=== PATIENT | female | born 1970 | race Caucasian/White ===

== ENCOUNTER → 2017-11-27 07:18 | Outpatient (CLI) | payer OTHER, SELFPAY ==
--- NOTE | 2017-11-27 07:00 | BI_ITS ---
MAMMOGRAPHY - BILATERAL SCREENING REASON FOR EXAM: Female, 47 years old. Routine annual screening examination. PERTINENT HISTORY: Non-contributory. TECHNIQUE: Digital bilateral breast marley (3D mammographic acquisition) in the CC and MLO projections. 2-D mediolateral oblique (MLO) and craniocaudad (CC) views of both breasts were obtained. CAD: Full Field Digital Mammography with Computer Added Detection was performed. COMPARISON: Comparison is made with prior outside examination dated November 24, 2016. FINDINGS: Breast Composition: The breasts are heterogeneously dense, which may obscure small masses. There are no dominant masses or suspicious calcifications. Stable small benign appearing bilateral axillary lymph nodes. No other significant abnormalities are identified. There has been no significant change since the prior study. BI/SCREENING MAMM (CAD), BILAT IMPRESSION: Stable bilateral screening mammogram. Yearly follow-up mammogram recommended. (A) ASSESSMENT CATEGORY: BIRADS Category 2: Benign. A letter regarding these results will be sent to the patient by the facility within 30 days. Approximately 10% of breast cancers are not detected by mammography. A normal mammogram should not delay biopsy of a clinically suspicious abnormality. [id number] Electronically Signed: Ramon Catherine MD at 14:39 EDT Tel [phone], Service support ,
== END ==
PROVIDERS: Family Provider Family Medicine; PCP Family Medicine; Visit Provider Nurse Practitioner Women's Health
DX: Z12.31 Encounter for screening mammogram for malignant neoplasm of breast (principal)
CPT/HCPCS: 77063; 77067

== ENCOUNTER → 2018-10-20 12:17 | Outpatient (CLI) | payer OTHER, SELFPAY ==
[2017-11-25 08:41] VITALS: BMI 34.9
--- NOTE | 2018-10-20 12:22 | RAD_ITS ---
STUDY: X-RAY - RIGHT KNEE REASON FOR EXAM: Female, 48 years old. Injury TECHNIQUE: 4 view(s) of the knee. COMPARISON: None. FINDINGS: Normal visualized distal femur. Normal visualized proximal tibia and fibula. Normal proximal tibiofibular articulation. There is mild joint space narrowing with mild degenerative change of the medial knee compartment. Normal lateral femorotibial compartment. Normal patellofemoral articulation. The soft tissue structures are unremarkable. RAD/Knee 4 or More Views IMPRESSION: Mild degenerative changes with joint space narrowing of the medial knee compartment. There is no evidence of fracture, dislocation, free intra-articular calcifications, or suprapatellar effusion. Electronically Signed: Carlos Panchal MD at 17:38 EDT , Service support ,
== END ==
PROVIDERS: Family Provider Family Medicine; PCP Family Medicine; Referring Provider Family Medicine; Visit Provider Family Medicine
DX: S83.91XA Sprain of unspecified site of right knee, initial encounter (principal)
CPT/HCPCS: 73564

== ENCOUNTER 2018-11-02 15:00 | Outpatient (RCR) | payer OTHER, SELFPAY ==
--- NOTE | 2018-11-02 15:46 | HP.PTEVAL ---
Patient's Visit Information DOMINIQUE CONCEPCION is a 48 year old F referred to Physical Therapy by Burak Ortiz MD with a diagnosis of Right Knee Pain/Strain. Date of Evaluation: 11/02/18 Physical Therapist: Felecia Carroll DPT - Visit Plan Frequency: 1x/Week Duration: 4 Weeks Plan: Return to MD for further evaluation - Subjective Findings: Started with right ankle pain in August- went and saw PCP who diagnosed her with a sprain with an x-ray and put her in a boot for 2 weeks- still had pain. Works at [employer] sent her to Dr. duke who reports that she had torn tendons. Follows up with him soon. Unsure if its from all of this or from sleeping and twisted to far- about 2 weeks ago. Then she saw Dr. Ortiz who sent her to therapy. Sleep: unable to sleep on her side. No injections in her knee- IC Diclofenac Sod EC. Meds help but just not better. Pain is located along medial joint- No pain radiating and they feel very I from each other. Worst: 7/10 Agg:laying on her side, being up and busy, walking alot Eases: laying on the couch with it propped up Best: 2/10. Reports the pain feels sharp to start and now is more dully achy pains. 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 No N/T in the LE. Feels a lot of popping and clicking and feels like its going to give out or go backwards. PMHx: skin cancer Meds: BC - Objective Posture: good throughout session. Gait: no deviation noted with walking a good pace. Stairs: asc/desc 8 recip with no HR. HR/TR: able. SLS: 30 sec without LOB but reports feeling like its going to hyperextend. Palpation: tender along medial joint line. ROM: 0-125 degrees with pain at end ranges. Strength: 5/5 throughout LE- increased pain with testing knee and hip strength. Special Test: Gind Test: positive, Jennifer: positive - Rehabilitation Potential Physical Therapy Diagnosis: Patient presents with hypomobility- she has increased pain with palpation, strength testing and functional mobility - Anticipated Interventions Thank you for the opportunity to evaluate your patient. For Medicare and Medicare HMO plans, please review the plan of care and approve it. It will need to be FAXED BACK to us at [phone] for Medicare purposes. For Medicare only, by signing this I certify the plan of care. Please let me know if there are questions or concerns regarding this plan of care. Physician Signature: Date:
--- NOTE | 2019-02-14 14:30 | HP.PT.NRP ---
HP - Discharge Summary (1) - Patient Information DOMINIQUE CONCEPCION was seen in my office for initial evaluation on 11/02/18. The following Plan of Care was established for this patient: Initial Frequency: 1x/Week Initial Duration: 4 Weeks This patient was last seen in our office . Pertinent comments regarding their Physical therapy will appear below: Patient has not attended PT in over 6 weeks and is appropriate for d/c and to return to MD for further evaluation as needed. At this point I will be discontinuing this patient from physical therapy. I would be happy to see this patient again in the future if found appropriate by the physician. Thank you! MARIE EngleT
== END 2018-11-03 19:00 | disposition home or self-care (01) ==
LOC: PT 15:00
PROVIDERS: Family Provider Family Medicine; PCP Family Medicine; Referring Provider Family Medicine; Visit Provider Family Medicine
DX: S83.91XD Sprain of unspecified site of right knee, subsequent encounter (principal); M25.561 Pain in right knee
CPT/HCPCS: 97161

== ENCOUNTER → 2018-11-29 07:19 | Outpatient (CLI) | payer OTHER, SELFPAY ==
--- NOTE | 2018-11-29 07:25 | MRI_ITS ---
STUDY: MRI RIGHT KNEE REASON FOR EXAM: Female, 48 years old. Medial knee pain. TECHNIQUE: Standardized fat and water weighted pulse sequences were obtained in all 3 orthogonal planes. COMPARISON: X-rays dated October 20, 2018. FINDINGS: Grade 3 cartilage loss at the patellar apex with mild reactive bone marrow edema (axial image 8 series 2). Lateral compartment articular cartilage preserved. Medial compartment grade 3/4 cartilage loss. No acute fracture, dislocation or osseous destruction. Lateral meniscus intact. Medial meniscus degeneration with early degenerative tear at the meniscal bodies/undersurface (sagittal image 20 series 4 and coronal image 14 series 6). Trace joint effusion. Small popliteal cyst. No significant soft tissue swelling. Normal medial collateral ligamentous complex (MCL). Normal distal semimembranosus, gracilis and semitendinosus tendons. Normal proximal tibiofibular articulation. Normal lateral collateral (fibular) ligament. Normal popliteus tendon. Normal biceps femoris tendon. Normal anterior cruciate ligament (ACL). Normal posterior cruciate ligament (PCL). Normal medial and lateral patellar retinaculum. Normal quadriceps tendon. Normal patellar tendon. Normal Hoffa's fat pad. MRI/Lower Ext Joint Only (Routine) IMPRESSION: Medial meniscal degeneration with early degenerative tear Patellar apex moderate cartilage loss Medial compartment moderate/severe cartilage loss Trace joint effusion and small popliteal cyst Electronically Signed: Dallas Westbrook DO at 9:14 EDT Tel , Service support ,
== END ==
PROVIDERS: Family Provider Family Medicine; PCP Family Medicine; Referring Provider Orthopaedic Surgery; Visit Provider Orthopaedic Surgery
DX: M13.161 Monoarthritis, not elsewhere classified, right knee (principal)
CPT/HCPCS: 73721

== ENCOUNTER → 2018-12-28 07:02 | Outpatient (CLI) | payer OTHER, SELFPAY ==
--- NOTE | 2018-12-28 07:04 | BI_ITS ---
MAMMOGRAPHY - BILATERAL SCREENING REASON FOR EXAM: Female, 48 years old. Routine annual screening examination. PERTINENT HISTORY: Non-contributory. TECHNIQUE: Digital bilateral breast chelita (3D mammographic acquisition) in the CC and MLO projections. 2-D mediolateral oblique (MLO) and craniocaudad (CC) views of both breasts were obtained. CAD: Full Field Digital Mammography with Computer Added Detection was performed. COMPARISON: Comparison is made with prior study dated November 27, 2017. FINDINGS: Breast Composition: The breasts are heterogeneously dense, which may obscure small masses. There are no dominant masses or suspicious calcifications. Stable small bilateral axillary lymph nodes. No other significant abnormalities are identified. There has been no significant change since the prior study. BI/SCREEN MAMM (CAD) W/[place]IL[place] BILAT IMPRESSION: Stable bilateral screening mammogram. Yearly follow-up mammogram recommended. (A) ASSESSMENT CATEGORY: BIRADS Category 1: Negative. A letter regarding these results will be sent to the patient by the facility within 30 days. Approximately 10% of breast cancers are not detected by mammography. A normal mammogram should not delay biopsy of a clinically suspicious abnormality. [id number] Electronically Signed: Ramon Catherine, at 8:46 EDT , Service support ,
== END ==
PROVIDERS: Family Provider Family Medicine; PCP Family Medicine; Referring Provider Nurse Practitioner Women's Health; Visit Provider Nurse Practitioner Women's Health
DX: Z12.31 Encounter for screening mammogram for malignant neoplasm of breast (principal)
CPT/HCPCS: 77063; 77067

== ENCOUNTER 2019-01-17 08:24 | Day surgery (SDC) | payer OTHER, SELFPAY ==
[2018-12-16 08:13] VITALS: BMI 34.9
--- NOTE | 2018-12-16 10:31 | HP_ITS ---
Intake Vital Signs 12/16/18 Body Mass Index (BMI) 34.9 Intake Visit Reasons: Rt knee Chief Complaint: right knee pain Is patient in pain?: Yes Allergies No Known Allergies Allergy (Verified 11/25/17 08:42) [facility] Medical History (Updated 01/07/18 @ 14:20 by Ella Banks) Abnormal Pap smear of cervix (Acute) History of melanoma (Acute) [place] teeth extracted (Resolved) Surgical History (Updated 01/07/18 @ 14:20 by Ella Banks) S/P cholecystectomy (Acute) H/O foot surgery (Resolved) basal cell removed (Resolved) excision of malignancy melanoma (Resolved) Social History (Updated 12/16/18 @ 10:31 by Mehul Lord DO) Smoking Status: Never smoker alcohol intake: current details: social substance use type: does not use caffeine: No what type of physical activity do you participate in: walking frequency: 3-4 times per week seatbelt use: always do you feel safe at home: Yes 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 DOMINIQUE CONCEPCION is a 48 year old F here today for right knee MRI f/u, she continues to have anterior medial knee pain with clicking. Denies any instability or locking. There is no swelling noted today. Denies numbness, tingling or other associated symptoms. Her pain is the worst at night. Ortho Exam Right Knee Skin/Wound: No erythema, No ecchymosis, No swelling Knee ROM: Yes ROM-Extension -20 to 0, No ROM-Flexion 0-140 (110) Examination: Yes Med jt line tenderness, No Lat jt line tenderness Stability: NML: Anterior Drawer, NML: Posterior Drawer Patella Grind: Yes KNEE: no joint effusion no patellar instability positive thesillies. Supplemental Info 11/29/2018 MRI right knee: Degenerative medial meniscal tear moderate to severe cartilage loss medial compartment moderate patellofemoral cartilage wear Assessment & Plan Problems 1. Primary osteoarthritis of right knee M17.11 2. Derangement of medial meniscus of right knee M23.303 Plan Reviewed the MRI and explained that she has degenerative meniscus tears and cartilage loss greatest in the medial compartment and patellofemoral. Her treatment options are continued steroid injections, gel injection, medial reconciliation coordinator brace, otc glucosamine chondroitin and/or nsaids or knee arthroscopy for debridement and further eval of the depth of OA and her need for a uni vs tka but explained that there is possibility of continued pain secondary to OA. We will prescribe a refill of diclofenac for her travel, if she wants the arthroscopy when she returns and prior to the fall wedding she has. Reviewed the pre-operative plans with the patient. Risks and benefits of the procedure were fully explained, including but not limited to infection, neurovascular injury, continued pain, arthritis, stiffness, need for further surgery, re-injury, DVT, PE, general risks of anesthesia, and loss of limb or life. The patient understands all the risks and does wish to proceed with written consent. Follow up two weeks post op or sooner if pain, swelling, numbness or associated symptoms, or concerns develop. All questions answered. Patient in agreement of plan. Medications New: diclofenac sodium 75 mg PO BID 60 tabs 0RF Coding Level of Care Code Off vis,est,level 3 Diagnoses Primary osteoarthritis of right knee M17.11 ??Osteoarthritis type: primary Derangement of medial meniscus of right knee M23.303 ??Laterality: right 12/16/18 1031 <Electronically signed by Mehul zheng DO> Date _ Mehul Lord DO
[2019-01-17 08:47] VITALS: BP 122/55; PULSE 79; RESP 16; TEMP 37.3; O2SAT 98; BMI 35.1
[2019-01-17 08:58] LABS: Internal QC Validated? YES +Cl - CLEAR BKGD; Pregnancy, Urine Negative Negative
[2019-01-17] MEDS: Cefazolin 2 GM in 0.9% Normal Saline 100 ML IV (10:24)
[2019-01-17] MEDS: Epinephrine (1 mg/ml) 1 MG/ML VIAL (10:50)
[2019-01-17] MEDS: Morphine 4 MG/ML Syringe (11:00)
[2019-01-17] MEDS: Bupivacaine 0.5% PF 10 ML VIAL (11:00)
[2019-01-17] MEDS: MethylPREDNISolone Acetate 80 MG/ML Vial (11:00)
[2019-01-17] MEDS: Bupiv/Epi 0.5% Mpf 30 ML Vial (11:00)
[2019-01-17 11:16] VITALS: BP 122/55; BP 139/58; PULSE 102; RESP 18; TEMP 36.9; O2SAT 97
--- NOTE | 2019-01-17 11:25 | PCM.HP.BLA ---
History and Physical Date of Admission: 01/17/19 History and Physical 12/16/18 1031 MR#: [id number] Acct: [id number] Name: DOMINIQUE CONCEPCION Rep #: [id number] : 1970 48 From: Mehul Lord DO PCP: Burak Ortiz MD Status: PRE [facility] [place] [facility] Location: [facility] [place] Intake Vital Signs 12/16/18 Body Mass Index (BMI) 34.9 Intake Visit Reasons: Rt knee Chief Complaint: right knee pain Is patient in pain?: Yes Allergies No Known Allergies Allergy (Verified 11/25/17 08:42) [facility] Medical History (Updated 01/07/18 @ 14:20 by Ella Banks) Abnormal Pap smear of cervix (Acute) History of melanoma (Acute) [place] teeth extracted (Resolved) Surgical History (Updated 01/07/18 @ 14:20 by Ella Banks) S/P cholecystectomy (Acute) H/O foot surgery (Resolved) basal cell removed (Resolved) excision of malignancy melanoma (Resolved) Social History (Updated 12/16/18 @ 10:31 by Mehul Lord DO) Smoking Status: Never smoker alcohol intake: current details: social substance use type: does not use caffeine: No what type of physical activity do you participate in: walking frequency: 3-4 times per week seatbelt use: always do you feel safe at home: Yes additional social history: [employer]- 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 DOMINIQUE CONCEPCION is a 48 year old F here today for right knee MRI f/u, she continues to have anterior medial knee pain with clicking. Denies any instability or locking. There is no swelling noted today. Denies numbness, tingling or other associated symptoms. Her pain is the worst at night. Ortho Exam Right Knee Skin/Wound: No erythema, No ecchymosis, No swelling Knee ROM: Yes ROM-Extension -20 to 0, No ROM-Flexion 0-140 (110) Examination: Yes Med jt line tenderness, No Lat jt line tenderness Stability: NML: Anterior Drawer, NML: Posterior Drawer Patella Grind: Yes KNEE: no joint effusion no patellar instability positive thesillies. Supplemental Info 11/29/2018 MRI right knee: Degenerative medial meniscal tear moderate to severe cartilage loss medial compartment moderate patellofemoral cartilage wear Assessment & Plan Problems 1. Primary osteoarthritis of right knee M17.11 2. Derangement of medial meniscus of right knee M23.303 Plan Reviewed the MRI and explained that she has degenerative meniscus tears and cartilage loss greatest in the medial compartment and patellofemoral. Her treatment options are continued steroid injections, gel injection, medial craft superintendent brace, otc glucosamine chondroitin and/or nsaids or knee arthroscopy for debridement and further eval of the depth of OA and her need for a uni vs tka but explained that there is possibility of continued pain secondary to OA. We will prescribe a refill of diclofenac for her travel, if she wants the arthroscopy when she returns and prior to the fall wedding she has. Reviewed the pre-operative plans with the patient. Risks and benefits of the procedure were fully explained, including but not limited to infection, neurovascular injury, continued pain, arthritis, stiffness, need for further surgery, re-injury, DVT, PE, general risks of anesthesia, and loss of limb or life. The patient understands all the risks and does wish to proceed with written consent. Follow up two weeks post op or sooner if pain, swelling, numbness or associated symptoms, or concerns develop. All questions answered. Patient in agreement of plan. Medications New: diclofenac sodium 75 mg PO BID 60 tabs 0RF Coding Level of Care Code Off vis,est,level 3 Diagnoses Primary osteoarthritis of right knee M17.11 ??Osteoarthritis type: primary Derangement of medial meniscus of right knee M23.303 ??Laterality: right 12/16/18 1031 <Electronically signed by Mehul Lord DO> Date Mehul Lord DO 12/23/18 0620 <Electronically signed by Mehul Lord DO> Date: Time: Mehul Lord DO CC: Burak Ortiz MD; Mehul Lord DO ~ Date Dictated: 12/16/18 1031 Date Transcribed: 12/19/18 0908 Engine Wiper: Signed I have re-examined the patient. There are no clinical changes since date of exam
--- NOTE | 2019-01-17 11:29 | DCINST_ITS ---
Discharge Diet: No Restrictions Call your doctor if you observe: Fever of 101 or Higher Additional Instructions: Ice and elevate next 72 hours .keep dressing on clean and dry for 48 hours then may remove begin showering daily but do not submerge in tub or pool. After shower may apply Band-Aids . Encourage knee range of motion weightbearing as tolerated, use crutches until confident in knee then may discontinue. No strenuous activity. When not ambulating keep iced and elevated next 72 hours.Ice and elevate next 72 hours .keep dressing on clean and dry for 48 hours then may remove begin showering daily but do not submerge in tub or pool. After shower may apply Band-Aids . Encourage knee range of motion weightbearing as tolerated, use crutches until confident in knee then may discontinue. No strenuous activity. When not ambulating keep iced and elevated next 72 hours. May take Ultram 1-2 every 8hrs [id number] every 6 hs and and [id number] Aleve 500mg every 12 hrs for pain as directed Allergies/Adverse Reactions: Allergies acetaminophen [From Vicodin] Adverse Reaction (Verified 01/17/19 08:37) Nausea/Vom/Diarrhea hydrocodone [From Vicodin] Adverse Reaction (Verified 01/17/19 08:37) Nausea/Vom/Diarrhea Medications to take at Discharge diclofenac sodium 75 mg tablet,delayed release 75 mg PO BID #60 tab 12/16/18 Desogestrel-Ethinyl Estradiol [Apri 28 Day Tablet] 1 ea PO DAILY 01/03/19 Acetaminophen [Tylenol Extra Strength] 1,000 mg PO Q6H PRN PRN #100 tab 01/17/19 traMADol [Ultram (G)] 50 mg PO Q4H PRN PRN 7 Days #42 tablet 01/17/19 The following prescriptions were given: Acetaminophen [Tylenol Extra Strength] 1,000 mg PO Q6H PRN PRN #100 tab PRN Reason: Pain Transmission Status: Pending to [facility]/pharmacy #[id number] traMADol [Ultram (G)] 50 mg PO Q4H PRN PRN 7 Days #42 tablet PRN Reason: Pain Transmission Status: Received by [facility]/pharmacy #[id number] Primary Care Physician: Burak Ortiz MD [Primary Care Provider] - Test Results: Test results from this visit will be discussed in further detail at your follow- up appointment, if applicable. Please Follow Up With: Mehul Lord DO - 2 weeks
[2019-01-17 11:30] VITALS: BP 122/55; BP 142/66; PULSE 97; RESP 18; O2SAT 100
--- NOTE | 2019-01-17 11:32 | OP.PCM_ITS ---
Report of Operation Date of Procedure: 01/17/19 Description of Surgical Findings:: Preop diagnosis: Right knee medial meniscus tear DJD Postoperative diagnosis: Complex tear posterior horn medial meniscus grade 3 Estephania wear medial femoral condyle medial tibial plateau medial and lateral patellar facet and grade 3 fissuring lateral tibial plateau Procedure: Right knee arthroscopic partial medial meniscectomy chondroplasty patella-and medial femoral condyle Anesthesia: General Estimated blood loss: 5 mL Tourniquet time: 22 minutes 300 mmHg Complications: none Indication for procedure: This is a 49-year-old female patient with ongoing mechanical knee pain who did have MRI evidence of medial meniscus tear and DJD the patient did wish to proceed with an elective arthroscopic surgery to attempt to alleviate the symptoms. Risk benefits and alternatives of the procedure were reviewed including risk of bleeding infection nerve artery tissue damage need for further surgery continued pain and expected postoperative course. Procedure: The patient was met in the preoperative holding area. The operative extremity was identified by both patient and physician and family and marked. Patient was brought back to the operating room on a wheeled cart and transferred to the operating table in the supine position. Anesthesia was started. A well- padded tourniquet was placed on the operative extremity. A lower extremity leg vaughn was secured to the operative extremity. The contralateral extremity was well-padded and the end of the bed was flexed to 90 degrees. The patient was prepped and draped in the usual sterile fashion. A timeout was called to ensure the proper patient, procedure, and extremity were being contemplated. 0.5% Marcaine with epinephrine was injected into the planned incisional areas under the skin only. An Esmarch was used to exsanguinate the extremity and the tourniquet was inflated. An 11 blade scalpel was used to make a stab incision in the anterior lateral portal. The arthroscope was inserted into the intercondylar notch and inflow and outflow tubes were attached. Arthroscopic visualization began. The medial compartment was entered. An 18-gauge spinal needle was used to establish the placement for anterior medial portal. An 11 blade scalpel was used to make a stab incision. Blunt probe was inserted followed by a meniscal probe. There was hypertrophic synovitis which was debrided with a shaver to allow for visualization as well as immediately noticing complex tearing of the posterior horn medial meniscus as well as grade 3 cartilage wear of the medial femoral condyle medial tibial plateau there was a loose cartilage flaps of the medial femoral condyle and a chondroplasty was performed. With the use of arthroscopic biting instruments and shaver and ArthroCare wand partial medial meniscectomy was performed. the ACL was found to be intact. The lateral compartment was entered and 3 fissuring of the lateral tibial plateau however there is no loose cartilage flaps The arthroscope was switched to the medial portal to complete the procedure. The medial and lateral gutters were inspected and were free of loose bodies. The patellofemoral joint was inspected grade 3 cartilage wear of the medial and lateral patellar facets which were debrided of loose cartilage flaps. The knee was thoroughly irrigated and drained. An intra-articular injection with 5 cc 0.5% Marcaine plain 4 mg of morphine and 40 mg of Depo-Medrol was injected intra-articularly. The arthroscope was removed the portals were closed with 3-0 nylon arthroscopic stitches. Followed by Xeroform 4 x 4's ABDs web roll and an Bret wrap. The tourniquet was let down and the drapes were removed. All counts were correct. The patient was brought back to the PACU in stable condition.
[2019-01-17 11:45] VITALS: BP 122/55; BP 135/70; PULSE 88; RESP 18; O2SAT 98
[2019-01-17 11:50] VITALS: BP 122/55; BP 131/67; PULSE 85; RESP 18; TEMP 36.6; O2SAT 98
[2019-01-17] MEDS: traMADol 50 MG Tablet PO (13:00)
[2019-01-17 13:47] VITALS: BP 118/65; BP 122/55; PULSE 82; RESP 16; TEMP 37.5; O2SAT 93
== END 2019-01-17 13:53 | disposition home or self-care (01) ==
LOC: SDC 08:28 → AC 08:28
PROVIDERS: Anesthesiology; Family Provider Family Medicine; PCP Family Medicine; Referring Provider Orthopaedic Surgery; Visit Provider Orthopaedic Surgery
PROC: (CPT 29870; principal; 2019-01-17 09:45)
DX: M23.221 Derangement of posterior horn of medial meniscus due to old tear or injury, right knee (principal); M17.11 Unilateral primary osteoarthritis, right knee
CPT/HCPCS: 29881; 64447; 81025; J7120; J2405

== ENCOUNTER 2019-06-01 08:00 | Outpatient (RCR) | payer OTHER, SELFPAY ==
--- NOTE | 2019-02-03 14:11 | HP.PTEVAL ---
Patient's Visit Information DOMINIQUE CONCEPCION is a 49 year old F referred to Physical Therapy by Mehul Lord DO with a diagnosis of R medial menisectomy.. Date of Evaluation: 01/31/19 Physical Therapist: Chris Head DPT - Visit Plan Frequency: 2x /Week Duration: 4-6 Weeks Plan: Start with ROM exercises, progress extension, add in biking. Progress stability exericses. Add in functional exercoses once no longer having pain. - Subjective Findings: Pt. is here today for her initial evaluation with diagnosis of R medial menisectomy. DOS: 01/17/19. Pt. reprots I am doing better, but it is still sore.' Pt. reports no N/T. Pt. has no radiating pain, 2/10 pain. Pt. reports pding some ankle pumps at home, but not much else for exercise. Pt. reports no fever or chills. 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 Pt. is able to sleep with minimal issues. Pt. is hopeful to get back to all recreational walking and biking without limitations. - Pain R medial knee Pain Intensity (Out of 10): 2 Pain Intensity Range: 1, 4 - Objective POSTURE: Pt. has sligth wt. shift to L side in stance. Lack TKE in stance. PALPATION: Pt. has mild knee effusion, expected. Pt. has well healing incsions, no signs of infection. Negative homans sign. NEURO: normal throughout bilateral LEs. ROM: L knee 0-0-137deg. R knee 0-6-88deg. Pain at end ranges of motions. Tight in B HS. MMT: Pt. is able to achieve a good quad set, has sligth extensor lag with SLR, but minimal. HIp abd 4/5, hip ext 4/5. GAIT: Pt. ambulates with out AD, but has decreased step length, and lacks TKE on RLE during stance phase, also has limited knee flexion during swing phase. - Goals Goal 1:: Pt. to be I with HEP. Goal Time Frame: 4-6 Weeks Goal 2:: Pt. to have full ROM of R knee without incerase in symptoms. Goal Time Frame: 4-6 Weeks Goal 3:: Pt. to have increased RLE strength by 1/2 grade through without increase in symptoms. Goal Time Frame: 4-6 Weeks Goal 4:: Pt. ambulate with normal pattern without increase in symptoms. Goal Time Frame: 4-6 Weeks Goal 5:: Pt. to negotiate steps with reciprocal pattern with use of 1 HR. Goal Time Frame: 4-6 Weeks Goal 6:: Pt. to sleep throughout the night without increase in symptoms. Goal Time Frame: 4-6 Weeks - Rehabilitation Potential Physical Therapy Diagnosis: Pt. has signs and symptoms consistent post surgical R menisectomy. Pt. has subsequent hypombiility, weakness and difficulty with gait. Rehabilitation Potential: Excellent - Anticipated Interventions Patient/Client Instruction: Educate patient on: Condition, Plan of Care, Risk Factors, Benefits of Fitness Program For the Purpose of:: To improve decision making, To facilitate caregiver knowledge, To improve self management, To prevent re-injury, To improve ability to perform tasks related to life management Therapeutic Exercise to Include: Strength training, Power training, Endurance training, Balance training, Body mechanics, Postural training, Flexibilty training, Gait and locomotor training, Passive ROM, Active ROM, Dynamic Lumbar Stabilization For the Purpose of:: To decrease pain, To increase ROM, To improve nutrient delivery to tissue, To increase oxygenation perfusion, To improve muscle performance and motor function, To improve ability to perform ADL's, To improve health of tissue, To decrease soft tissue restriction, To increase flexibility/ROM, To improve endurance IF ES: Yes Cryotherapy (ice pack, ice massage): Yes For the Purpose of:: To decrease pain, To decrease swelling/inflammation, To increase ROM, To improve nutrient delivery to tissue Thank you for the opportunity to evaluate your patient. For Medicare and Medicare HMO plans, please review the plan of care and approve it. It will need to be FAXED BACK to us at [phone] for Medicare purposes. For Medicare only, by signing this I certify the plan of care. Please let me know if there are questions or concerns regarding this plan of care. Physician Signature: Date:
== END 2019-06-01 19:00 | disposition home or self-care (01) ==
LOC: PT 08:00
PROVIDERS: Family Provider Family Medicine; PCP Family Medicine; Visit Provider Orthopaedic Surgery
DX: Z98.890 Other specified postprocedural states (principal)
CPT/HCPCS: 97014; 97016; 97035; 97110; 97161; 97530; G0283

== ENCOUNTER → 2020-01-01 08:07 | Outpatient (CLI) | payer OTHER, SELFPAY ==
[2019-11-28 10:39] VITALS: BMI 35.1
--- NOTE | 2020-01-01 08:15 | BI_ITS ---
MAMMOGRAPHY - BILATERAL SCREENING 3-D TOMOSYNTHESIS REASON FOR EXAM: Female, 49 years old. Routine screening PERTINENT HISTORY: Previous hormone use. TECHNIQUE: 2-D mammograms and 3-D Tomosynthesis of the breast (s) were performed. CAD was performed. COMPARISON: 12/28/2018 FINDINGS: The breast composition is heterogeneously dense that can obscure small breast masses. Scattered benign calcifications are seen. No dense spiculated masses or suspicious microcalcifications are identified. No architectural distortion is identified. There is no skin thickening or retraction. There has been no significant change since the prior study. BI/SCREEN MAMM (CAD) W/CHELITA BILAT IMPRESSION: No mammographic signs of malignancy. Routine yearly mammograms recommended. ASSESSMENT CATEGORY: BIRADS Category 2: Benign. A letter regarding these results will be sent to the patient by the facility within 30 days. FOLLOW UP RECOMMENDATION: Yearly follow up mammogram recommended. (A) Approximately 10% of breast cancers are not detected by mammography. A normal mammogram should not delay biopsy of a clinically suspicious abnormality. Electronically Signed: Deric Bragg MD at 9:13 EDT , Service support ,
== END ==
PROVIDERS: PCP Family Medicine; Referring Provider Nurse Practitioner Women's Health; Visit Provider Nurse Practitioner Women's Health
DX: Z12.31 Encounter for screening mammogram for malignant neoplasm of breast (principal)
CPT/HCPCS: 77063; 77067

== ENCOUNTER → 2020-12-03 13:33 | Outpatient (CLI) | payer OTHER, SELFPAY ==
[2020-12-03 08:40] VITALS: BMI 35.1
[2020-12-08 10:21] LABS: HPV APTIMA, High Risk Negative (Negative)
== END ==
PROVIDERS: PCP Family Medicine; Referring Provider Nurse Practitioner Women's Health; Visit Provider Nurse Practitioner Women's Health
DX: Z12.4 Encounter for screening for malignant neoplasm of cervix (principal)
CPT/HCPCS: 87624; 88175; G0145

== ENCOUNTER → 2021-01-01 07:47 | Outpatient (CLI) | payer OTHER, SELFPAY ==
[2020-12-03 08:40] VITALS: BMI 35.1
--- NOTE | 2021-01-01 07:49 | BI_ITS ---
MAMMOGRAPHY - BILATERAL SCREENING REASON FOR EXAM: Female, 50 years old. Routine annual screening examination. PERTINENT HISTORY: Non-contributory. TECHNIQUE: Digital bilateral breast chelita (3D mammographic acquisition) in the CC and MLO projections. 2-D mediolateral oblique (MLO) and craniocaudad (CC) views of both breasts were obtained. CAD: Full Field Digital Mammography with Computer Added Detection was performed. COMPARISON: Comparison is made with prior study dated 01/01/2020 and 12/28/2018 FINDINGS: Breast Composition: The breasts are heterogeneously dense, which may obscure small masses. There are no dominant masses or suspicious calcifications. Stable small benign appearing bilateral axillary lymph nodes. No other significant abnormalities are identified. There has been no significant change since the prior study. BI/SCRN MAMM (CAD)W/CHELITA BILAT IMPRESSION: Stable bilateral screening mammogram. Yearly follow-up mammogram recommended. (A) ASSESSMENT CATEGORY: BIRADS Category 2: Benign. A letter regarding these results will be sent to the patient by the facility within 30 days. Approximately 10% of breast cancers are not detected by mammography. A normal mammogram should not delay biopsy of a clinically suspicious abnormality. [id number] Electronically Signed: Ramon Catherine MD at 9:10 EDT , Service support ,
== END ==
PROVIDERS: PCP Family Medicine; Referring Provider Nurse Practitioner Women's Health; Visit Provider Nurse Practitioner Women's Health
DX: Z12.31 Encounter for screening mammogram for malignant neoplasm of breast (principal)
CPT/HCPCS: 77063; 77067

== ENCOUNTER → 2022-01-02 | Outpatient (CLI) | payer BC, SELFPAY ==
--- NOTE | 2022-01-02 08:06 | BI_ITS ---
MAMMOGRAPHY - BILATERAL SCREENING REASON FOR EXAM: Female, 51 years old. Routine annual screening examination. PERTINENT HISTORY: Non-contributory. TECHNIQUE: Digital bilateral breast chelita (3D mammographic acquisition) in the CC and MLO projections. 2-D mediolateral oblique (MLO) and craniocaudad (CC) views of both breasts were obtained. CAD: Full Field Digital Mammography with Computer Added Detection was performed. COMPARISON: Comparison is made with prior study 01/01/2021 and 01/01/2020. FINDINGS: Breast Composition: The breasts are heterogeneously dense, which may obscure small masses. There are no dominant masses or suspicious calcifications. No other significant abnormalities are identified. There has been no significant change since the prior study. BI/SCRN MAMM (CAD)W/CHELITA BILAT IMPRESSION: Stable bilateral screening mammogram. Yearly follow-up mammogram recommended. (A) ASSESSMENT CATEGORY: BIRADS Category 1: Negative. A letter regarding these results will be sent to the patient by the facility within 30 days. Approximately 10% of breast cancers are not detected by mammography. A normal mammogram should not delay biopsy of a clinically suspicious abnormality. [id number] Electronically Signed: Ramon Catherine MD at 9:43 EDT ,
== END | disposition home or self-care (01) ==
LOC: OPBI 08:05
PROVIDERS: PCP Family Medicine; Referring Provider Nurse Practitioner Women's Health; Visit Provider Nurse Practitioner Women's Health
DX: Z12.31 Encounter for screening mammogram for malignant neoplasm of breast (principal)
CPT/HCPCS: 77063; 77067

== ENCOUNTER → 2022-09-07 | Outpatient (CLI) | payer BC, SELFPAY ==
[2022-09-07 10:14] LABS: Hematocrit 42.3 % (37-47); Hemoglobin 13.7 g/dL (12.0-15.0); Mean Corp Hgb Conc 32.4 g/dL (32-36); Mean Corpuscular Hgb 29.8 pg (27.0-32.0); Mean Platelet Vol. 9.8 fl (6.2-12.0); Platelet Count 265 K/mm3 (150-450); RBC Distribution Width CV 12.8 % (11.6-14.6); RBC Distribution Width SD 43.1 fl (35.1-43.9); White Blood Count 5.8 K/mm3 (4.4-11.0)
[2022-09-07 10:33] LABS: AST(SGOT) 27 U/L (15-37); Alanine Aminotransfer ALT/SGPT 44 U/L (13-56); Albumin, Serum 3.5 g/dL (3.2-5.0); Alkaline Phosphatase 73 U/L (45-117); Anion Gap 3 (5-15); BUN 22 mg/dL (7-18); BUN/Creat Ratio 32.8 RATIO (10-20); Calcium,Total 9.2 mg/dL (8.5-10.1); Chloride 105 mmol/L (98-107); Cholesterol 195 mg/dL (200); Creatinine, Serum 0.67 mg/dL (0.55-1.02); EST Glomerular Filtration Rate 98 mL/min (>60); Est Glom Filt Rate - Afr Amer 118 mL/min (>60); Globulin 3.5 g/dL (2.2-4.2); Glucose 96 mg/dL (74-106); High Density Lipoprotein 63 mg/dL; Potassium 4.1 mmol/L (3.5-5.1); Sodium Level 137 mmol/L (136-145); Triglycerides 105 mg/dL; Very Low Density Lipoprotein 21 mg/dL (5-40)
== END | disposition home or self-care (01) ==
LOC: MFPLAB 08:44
PROVIDERS: PCP Family Medicine; Visit Provider Nurse Practitioner Family
DX: R60.9 Edema, unspecified (principal); Z13.220 Encounter for screening for lipoid disorders
CPT/HCPCS: 36415; 80053; 80061; 85027

== ENCOUNTER → 2022-11-13 | Outpatient (CLI) | payer BC, SELFPAY ==
--- NOTE | 2022-11-13 06:58 | EKG12_ITS ---
Test Reason : PREOP Blood Pressure : / mmHG Vent. Rate : 077 BPM Atrial Rate : 077 BPM P-R Int : 162 ms QRS Dur : 098 ms QT Int : 356 ms P-R-T Axes : 065 018 042 degrees QTc Int : 402 ms Normal sinus rhythm Low voltage QRS Borderline ECG Confirmed by JG CROSS, SOCORRO ([id number]), image editor NANCY LONDON ([id number]) on 11/17/2022 8:41:03 AM Referred By: Kathryn Ace Confirmed By:SOCORRO GREGORIO MD
[2022-11-13 08:05] LABS: Absolute Lymphocyte Count 3.67 X10^3/uL (0.83-4.51); Absolute Neutrophil Count 2.6 X10^3/uL (2.0-7.7); Basophil# 0.07 X10^3/uL; Eosinophil# 0.23 X10^3/uL; Eosinophils% 3.3 % (0-5); Hematocrit 43.5 % (37-47); Lymphocyte # 3.67 X10^3/ul (0.83-4.51); Lymphocyte % 51.9 % (19-41); Mean Corp Hgb Conc 32.2 g/dL (32-36); Mean Corpuscular Hgb 29.3 pg (27.0-32.0); Mean Platelet Vol. 10.1 fl (6.2-12.0); Monocyte# 0.48 X10^3/uL; Monocyte% 6.8 % (0-10); NRBC Flagged by Analyzer 0 % (0-5); Neutrophil # 2.61 X10^3/uL (2.7-7.7); Neutrophil % 36.9 % (47-70); Platelet Count 255 K/mm3 (150-450); RBC Distribution Width CV 12.5 % (11.6-14.6); RBC Distribution Width SD 41.5 fl (35.1-43.9); Red Blood Count 4.78 M/mm3 (4.2-5.4); White Blood Count 7.1 K/mm3 (4.4-11.0)
[2022-11-13 08:26] LABS: Anion Gap 4 (5-15); BUN 17 mg/dL (7-18); BUN/Creat Ratio 20.5 RATIO (10-20); Chloride 105 mmol/L (98-107); Creatinine, Serum 0.83 mg/dL (0.55-1.02); EST Glomerular Filtration Rate 76 mL/min (>60); Est Glom Filt Rate - Afr Amer 92 mL/min (>60); Glucose 95 mg/dL (74-106); Potassium 4.3 mmol/L (3.5-5.1); Sodium Level 140 mmol/L (136-145)
== END | disposition home or self-care (01) ==
PROVIDERS: PCP Family Medicine; Referring Provider Physician Assistant Surgical; Visit Provider Physician Assistant Surgical
DX: Z01.818 Encounter for other preprocedural examination (principal); Z01.810 Encounter for preprocedural cardiovascular examination
CPT/HCPCS: 36415; 80048; 85025; 93005

== ENCOUNTER → 2022-12-29 | Outpatient (CLI) | payer BC, SELFPAY ==
[2022-12-29 09:45] LABS: Vitamin D,25 Hydroxy 41.8 ng/mL
[2022-12-29 09:51] LABS: T4 Free Direct 0.98 ng/dL (0.76-1.46); Thyroid Stim Hormone (TSH) 1.56 uIU/mL (0.358-3.74)
[2022-12-30 05:07] LABS: Thyroid Peroxidase AB < 9 IU/mL (0-34)
== END | disposition home or self-care (01) ==
PROVIDERS: PCP Family Medicine; Referring Provider Nurse Practitioner Women's Health; Visit Provider Nurse Practitioner Women's Health
DX: R53.83 Other fatigue (principal); Z13.21 Encounter for screening for nutritional disorder
CPT/HCPCS: 36415; 82306; 84439; 84443; 86376

== ENCOUNTER → 2023-01-05 | Outpatient (CLI) | payer BC, SELFPAY ==
--- NOTE | 2023-01-05 08:02 | BI_ITS ---
MAMMOGRAPHY - BILATERAL SCREENING REASON FOR EXAM: Female, 52 years old. Routine annual screening examination. PERTINENT HISTORY: Non-contributory. TECHNIQUE: Digital bilateral breast chelita (3D mammographic acquisition) in the CC and MLO projections. 2-D mediolateral oblique (MLO) and craniocaudad (CC) views of both breasts were obtained. CAD: Full Field Digital Mammography with Computer Added Detection was performed. COMPARISON: Comparison is made with prior study dated January 02, 2022 and January 01, 2021. FINDINGS: Breast Composition: The breasts are heterogeneously dense, which may obscure small masses. There are no dominant masses or suspicious calcifications. Stable small benign-appearing bilateral axillary lymph nodes. No other significant abnormalities are identified. There has been no significant change since the prior study. BI/SCRN MAMM (CAD)W/CHELITA BILAT IMPRESSION: Stable bilateral screening mammogram. Yearly follow-up mammogram recommended. (A) ASSESSMENT CATEGORY: BIRADS Category 2: Benign. A letter regarding these results will be sent to the patient by the facility within 30 days. Approximately 10% of breast cancers are not detected by mammography. A normal mammogram should not delay biopsy of a clinically suspicious abnormality. [id number] Electronically Signed: Ramon Catherine MD at 9:20 EDT ,
== END | disposition home or self-care (01) ==
LOC: OPBI 08:01
PROVIDERS: PCP Family Medicine; Referring Provider Nurse Practitioner Women's Health; Visit Provider Nurse Practitioner Women's Health
DX: Z12.31 Encounter for screening mammogram for malignant neoplasm of breast (principal)
CPT/HCPCS: 77063; 77067

== ENCOUNTER 2023-07-15 17:30 | Outpatient (RCR) | payer BC, SELFPAY ==
--- NOTE | 2023-05-27 18:01 | HP.PTEVAL ---
Patient's Visit Information Visit Information Visit Information: DOMINIQUE CONCEPCION is a 53 year old F referred to Physical Therapy by Out of Town Doctor with a diagnosis of UNILATERAL POST-TRUAMATIC OSTEOARTHRITIS ,LEFT KNEE. Date of Evaluation: 05/27/23 Physical Therapist: Shon Smith, PT, Cert MDT, OCS Visit Plan Frequency: 2x /Week Duration: 4 Weeks Plan: PT INTERVENTIONS ROM,FLEXABILITY ,STRENGTHENING QUADS /HAMS/HIP AND FUNCTIONAL STRENGTHENING Subjective Subjective: This 53 y/o female presents to physical therapy with left knee pain with OA. Patient has left knee pain ~ year ,with patient underwent s/p medial and lateral meniscectomy due to degenerative . Most recently , seen Dr Abebe Oct not candidate for partial but in future TKA . Patient has had 2 cortisone injection 1 week ago ,which helped. Patient had x-rays at [facility]. Patient had h/o [address] wanted to try Aquatics. Prescribed meloxicam. Described sharp ache. Patient had some edema. Aggravating factors squatting/kneeling ,stairs ascending ,.Alleviating factors movement. Patient affects sleeping. Patient condition affects QOL and function . Patient goals arron decrease pain. 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 Pain Left Knee: Pain Intensity (Out of 10): 4 Pain Intensity Range: 10 Objective Objective: POSTURE: mild forward posture at trunk hips/knees flexed NEURO: denies paresthesia/tingling PALAPTION: medial lateral tender EDEMA: joint line 45.7 cm AROM: supine knee flexion 0-125 degrees MMT: ( peak force) left quads 26.2 ,hamstrings 25.1 ,hip flexion 27.1 FLEXABLITY: hamstrings mod tight STAIRS: ascend/descend 5 steps with rails alternating Special Tests L Knee Jennifer - Meniscus: Positive L Knee Valgus - MCL: Positive L Knee Varus - LCL: Positive Comments: PAIN Balance/Special Test Scores Lower Extremity Functional Score: 40 Goals Goal 1:: Patient to be I with Aquatic Therapy program for knee OA Goal Time Frame: 4-6 Weeks Goal 2:: Patient to improve AROM supine knee flexion by 5 degrees to improve stairs Goal Time Frame: 4-6 Weeks Goal 3:: Patient to improve peak force quads/hams 5 # strength to improve function Goal Time Frame: 4-6 Weeks Goal 4:: Patient to improve LFES score by 5 points to improve function and QOL Goal Time Frame: 4-6 Weeks Rehabilitation Potential Physical Therapy Diagnosis: Patient has DJD left knee with pain, weakness , and difficulty with squatting and stairs thus will benefit from skilled PT Rehabilitation Potential: Good Anticipated Interventions Patient/Client Instruction: Educate patient on: Condition and Plan of Care For the Purpose of:: To decrease pain, To increase ROM, To improve muscle performance and motor function, To improve ability to perform ADL's, To increase tolerance to activity/condition/position, To improve ability of physical actions for home/community/work/leisure, To improve gait and locomotor functions, To improve health of tissue and To improve endurance Therapeutic Exercise to Include: Strength training, Power training, Endurance training, Balance training, Flexibilty training, In an aquatic setting , Passive ROM and Active ROM Comment: QUADS/HAMS/HIP For the Purpose of:: To decrease pain, To increase ROM, To improve nutrient delivery to tissue, To increase oxygenation perfusion, To improve muscle performance and motor function, To increase tolerance to activity/condition/position, To improve ability of physical actions for home/community/work/leisure, To improve health of tissue, To decrease soft tissue restriction and To increase flexibility/ROM Text: Thank you for the opportunity to evaluate your patient. For Medicare and Medicare HMO plans, please review the plan of care and approve it. It will need to be FAXED BACK to us at [phone] for Medicare purposes. For Medicare only, by signing this I certify the plan of care. Please let me know if there are questions or concerns regarding this plan of care. Physician Signature: Date:
--- NOTE | 2023-07-15 18:19 | HP.PTDCSUM ---
Discharge Summary D/C summary: It has been my pleasure to treat DOMINIQUE CONCEPCION referred by Cas Everett PA-C, with the diagnosis of UNILATERAL POST-TRUAMATIC OSTEOARTHRITIS ,LEFT KNEE for a total of 14 visit(s). Discharge Date: 07/15/23 Please see the following information for a summary of their discharge status. Subjective Subjective: Sore from last session Less edema pain is better Mind full on side step Stairs are better Pain Left Knee: Pain Intensity (Out of 10): 2 Overall Improvement % Improvement: 70 Objective Objective/Function: POSTURE: mild forward posture at trunk hips/knees flexed NEURO: denies paresthesia/tingling PALAPTION: medial lateral tender EDEMA: joint line 42. cm AROM: supine knee flexion 0-140 degrees MMT: ( peak force) left quads 62.2 ,hamstrings 57.8. 1hip flexion 53.3 FLEXABLITY: hamstrings min/mod tight STAIRS: ascend/descend 5 steps Goals Goal 1:: Patient to be I with Aquatic Therapy program for knee OA Goal Progress: Goal Met Goal 2:: Patient to improve AROM supine knee flexion by 5 degrees to improve stairs Goal Progress: Goal Met Goal 3:: Patient to improve peak force quads/hams 5 # strength to improve function Goal Progress: Goal Met Goal 4:: Patient to improve LFES score by 5 points to improve function and QOL Goal Progress: Goal Met Plan Plan: D/C TO AQUATICS ON OWN D/C Information Discharge Comments: HEP d/c sentence: If there are questions or concerns regarding this patient's physical therapy, please feel free to call me at [phone]. Thank you for the referral of this patient. Sincerely, Shon Smith, PT, Cert MDT, OCS Balance/Gait/Functional tests Balance/Special Test Scores Lower Extremity Functional Score: 55 Improvement % Improvement: 70
== END 2023-07-15 19:00 | disposition home or self-care (01) ==
LOC: PT 17:30
PROVIDERS: PCP Family Medicine; Visit Provider Physician Assistant Surgical
DX: M17.32 Unilateral post-traumatic osteoarthritis, left knee (principal); E66.8 Other obesity; Z68.32 Body mass index [BMI] 32.0-32.9, adult
CPT/HCPCS: 97113; 97161; 97530

== ENCOUNTER → 2024-01-10 | Outpatient (CLI) | payer BC, SELFPAY ==
--- NOTE | 2024-01-10 07:59 | BI_ITS ---
MAMMOGRAPHY - BILATERAL SCREENING REASON FOR EXAM: Female, 54 years old. Routine annual screening examination. PERTINENT HISTORY: Non-contributory. TECHNIQUE: Digital bilateral breast chelita (3D mammographic acquisition) in the CC and MLO projections. 2-D mediolateral oblique (MLO) and craniocaudad (CC) views of both breasts were obtained. CAD: Full Field Digital Mammography with Computer Added Detection was performed. COMPARISON: Comparison is made with prior study dated January 05, 2023 and January 02, 2022. FINDINGS: Breast Composition: The breasts are heterogeneously dense, which may obscure small masses. There are no dominant masses or suspicious calcifications. Stable small benign-appearing bilateral axillary lymph nodes. No other significant abnormalities are identified. There has been no significant change since the prior study. BI/SCRN MAMM (CAD)W/CHELITA BILAT IMPRESSION: Stable bilateral screening mammogram. Yearly follow-up mammogram recommended. (A) ASSESSMENT CATEGORY: BIRADS Category 2: Benign. A letter regarding these results will be sent to the patient by the facility within 30 days. Approximately 10% of breast cancers are not detected by mammography. A normal mammogram should not delay biopsy of a clinically suspicious abnormality. [id number] Electronically Signed: Ramon Catherine MD at 8:49 EDT ,
== END | disposition home or self-care (01) ==
LOC: OPBI 07:59
PROVIDERS: PCP Family Medicine; Referring Provider Nurse Practitioner Women's Health; Visit Provider Nurse Practitioner Women's Health
DX: Z12.31 Encounter for screening mammogram for malignant neoplasm of breast (principal)
CPT/HCPCS: 77063; 77067

== ENCOUNTER 2024-02-25 08:23 | Day surgery (SDC) | payer BC, SELFPAY ==
[2024-02-25] VITALS (7 sets, daily range): BP systolic 93–127; BP diastolic 53–75; PULSE 71–83; RESP 16; TEMP 36.3–36.6; O2SAT 99–100; BMI 29.5
--- NOTE | 2024-02-25 08:56 | PCM.PRE.AN2 ---
ASA Classification* ASA Classification ASA Classification: 2 Assessment & Plan Anesthesia* Anesthesia Assessment Anesthesia Assessment: Discussed sedation and/or anesthesia options, risks, benefits, and alternatives with patient/parents/legal guardian/POA. Questions invited. The patient/parents/legal guardian/POA seems to understand and agrees to proceed with anesthesia plan. Reviewed the physical assessment, medical history, allergy history and patient home medications list prior to surgery/procedure/anesthetic and documented any changes. Performed airway and anesthesia risk assessments. Anesthesia Type Anesthesia Type: MAC Anesthesia Focused Assessment* Airway Assessment Mouth opens: >3 cm Mallampati Score: II Focused Labs Anesthesia Preop lab: CBC WBC 7.1 K/mm3 (4.4-11.0) 11/13/22 07:01 RBC 4.78 M/mm3 (4.2-5.4) 11/13/22 07:01 Hgb 14.0 g/dL (12.0-15.0) 11/13/22 07:01 Hct 43.5 % (37-47) 11/13/22 07:01 Plt Count 255 K/mm3 (150-450) 11/13/22 07:01 CHEMISTRY Potassium 4.3 mmol/L (3.5-5.1) 11/13/22 07:01 Sodium 140 mmol/L (136-145) 11/13/22 07:01 BUN 17 mg/dL (7-18) 11/13/22 07:01 Creatinine 0.83 mg/dL (0.55-1.02) 11/13/22 07:01 Glucose 95 mg/dL (74-106) 11/13/22 07:01 TSH 1.56 uIU/mL (0.358-3.74) 12/29/22 09:05 COAG Urine Test Negative Negative 01/17/19 08:45 Pre-Assessment Diagnosis/Proposed Procedure Planned Operative Procedure(s): CSCOPE Anesthesia History 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 When Was Last Pacemaker Check QUESTION #4 FULL TEXT: You/Your Family Experience fever (hyperthermia) with Anesthesia Last Oral Intake Last Oral intake: Last Oral Intake NPO since Meds taken in AM with sips of water? Meds patient instructed to take am of surgery PONV PONV - marketing and communications officer: PONV - marketing and communications officer Female Yes 02/23/24 13:02 HX of Motion Sickness Yes 02/23/24 13:02 HX of N/V After Surgery No 02/23/24 13:02 Non-Smoker Yes 02/23/24 13:02 Duration of Surgery greater No 02/23/24 13:02 than 60 minutes Number of Risk Factors 3 02/23/24 13:02 PONV Score Moderate Risk 02/23/24 13:02 Height & Weight Height & Weight: Anesthesia: Height & Weight Height 5 ft 8 in 01/05/24 10:33 Respiratory Assessment Respiratory Assessment - marketing and communications officer: Respiratory Tract Infection Hx - marketing and communications officer Hx Respiratory Tract Infection No 02/23/24 13:02 STOP Sleep Apnea STOP Sleep Apnea - marketing and communications officer: STOP Sleep Apnea - marketing and communications officer Hx Hypertension No 02/23/24 13:02 Hx Sleep Apnea No 02/23/24 13:02 CPAP BIPAP Do you snore loudly (louder No 02/23/24 13:02 than talking or can be heard Do you often feel tired/ No 02/23/24 13:02 fatigued/ sleepy during daytime? Has anyone observed you stop No 02/23/24 13:02 breathing during sleep? STOP Results Negative 02/23/24 13:02 QUESTION #5 FULL TEXT : Do you snore loudly (louder than talking or can be heard through closed doors)? 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 Specify any problems Hx of Preganancy in last 3 N/A 02/23/24 13:02 Months Nurse Filling Out Transfusion NBUCHER 02/23/24 13:02 & Questions: Date: 02/23/24 02/23/24 13:02 Time: 13:04 02/23/24 13:02 Patient unable to answer at this time (ie. confused, unrespo /Reproduction History /Reproductive History - marketing and communications officer: /Reproductive Hx- marketing and communications officer Hx Now No 02/23/24 13:02 Gestational Age (in weeks): EDC: Hx Hx Para Hx Section SAB No 02/23/24 13:02 Active Medications Active Medications: Current Medications Generic Name Dose Route Start Last Admin Trade Name Freq PRN Reason Stop Dose Admin Lactated Ringer's 1,000 mls @ 15 mls/hr 02/25/24 08:45 IV .Q48H CARL PFSH Medical History Wears glasses Cancer Osteoarthritis Gastric reflux Heartburn Non-smoker Abnormal Pap smear of cervix History of melanoma Home Medications ?Medication ?Instructions ?Recorded ?Last Taken ?Type multivitamin 1 tab PO DAILY 12/04/21 Unknown History calcium carbonate (Calcium 600) 600 mg PO DAILY 12/29/22 Unknown History meloxicam 15 mg tablet 15 mg PO DAILY 12/29/22 Unknown History estradiol 0.05 mg-norethindrone 1 patch transdermal 2XW #24 ea 01/04/24 Unknown Rx 0.14 mg/24 hr semiwkly transderm patch (CombiPatch) semaglutide (weight loss) 1.7 1.7 mg subcut TU 01/04/24 02/15/24 History mg/0.75 mL subcutaneous pen injector (Wegovy) amoxicillin 500 mg capsule 500 mg PO TID PRN SURGERY POST 02/23/24 02/25/24 History KNEE REPLACEMENT Allergy/AdvReac Type Severity Reaction Status Date / Time hydrocodone (From Vicodin) AdvReac Nausea/Vom/ Verified 02/25/24 08:45 Diarrhea Surgical History History of meniscectomy of left knee H/O meniscectomy of right knee S/P cholecystectomy History of partial knee replacement basal cell removed excision of malignancy melanoma H/O foot surgery [place] teeth extracted Social History household members: spouse current occupational status: employed Smoking Status: Never smoker alcohol intake: current details: social substance use type: does not use caffeine: No what type of physical activity do you participate in: walking frequency: 3-4 times per week seatbelt use: always do you feel safe at home: Yes additional social history: Mainor- 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 Patient works at [employer] Review of Systems (Anesthesia) ROS Narrative System reviewed and no additional complaints, except as documented.
[2024-02-25] MEDS: Lactated Ringers 1,000 ML 15 ML IV (09:03)
--- NOTE | 2024-02-25 09:06 | H&P.OPEN ---
HPI - General HPI Narrative DOMINIQUE CONCEPCION, is a 54 F who presents for screening colonoscopy. Patient has never had a colonoscopy in the past. She denies any abdominal pain or blood in the stool. She has no family history of colon cancer. PENDING SALE TO [facility] Medical History Wears glasses Cancer Osteoarthritis Gastric reflux Heartburn Non-smoker Abnormal Pap smear of cervix History of melanoma Home Medications ?Medication ?Instructions ?Recorded ?Last Taken ?Type multivitamin 1 tab PO DAILY 12/04/21 Unknown History calcium carbonate (Calcium 600) 600 mg PO DAILY 12/29/22 Unknown History meloxicam 15 mg tablet 15 mg PO DAILY 12/29/22 Unknown History estradiol 0.05 mg-norethindrone 1 patch transdermal 2XW #24 ea 01/04/24 Unknown Rx 0.14 mg/24 hr semiwkly transderm patch (CombiPatch) semaglutide (weight loss) 1.7 1.7 mg subcut TU 01/04/24 02/15/24 History mg/0.75 mL subcutaneous pen injector ([employer]) amoxicillin 500 mg capsule 500 mg PO TID PRN SURGERY POST 02/23/24 02/25/24 History KNEE REPLACEMENT Allergy/AdvReac Type Severity Reaction Status Date / Time hydrocodone (From Vicodin) AdvReac Nausea/Vom/ Verified 02/25/24 08:45 Diarrhea Surgical History History of meniscectomy of left knee H/O meniscectomy of right knee S/P cholecystectomy History of partial knee replacement basal cell removed excision of malignancy melanoma H/O foot surgery [place] teeth extracted Social History household members: spouse current occupational status: employed Smoking Status: Never smoker alcohol intake: current details: social substance use type: does not use caffeine: No what type of physical activity do you participate in: walking frequency: 3-4 times per week seatbelt use: always do you feel safe at home: Yes additional social history: Mainor- 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 Patient works at [employer] Past Medical/Surgical History Planned Operation Planned Operative Procedure(s): CSCOPE S.O.S: No Previous Hospitalizations/Surgeries HX Hospitalizations: No HX of Surgeries: Skin cancer-Jan 2002 surgery Left foot surgery Any Problems With Anesthesia: No You/Your Family Experience Fever (Hyperthermia) With Anes: No Cholinesterase deficiency: No Cardiovascular Hx Chest Pain within Last 2 months: No Hx of Irregular Heartbeat and/or Afib: No Hx Heart Attack: No Hx Congestive Heart Failure: No Hx Rheumatic Fever: No Hx Hypertension: No Hx Internal Defibrillator: No Hx Pacemaker: No Hx Cardiac Catheterization: No Hx Cardiac Surgery/Stents/Etc.: No Hx Stress Test: No Hx Pain in Legs when Walking/Leg Cramps: No Respiratory Chronic Cough: No HX of Shortness of Breath: No Hoarseness: No Hx Chronic Obstructive Pulmonary Disease (COPD): No Hx Asthma: No Hx Emphysema: No Hx Sleep Apnea: No Hx Respiratory Tract Infection/Cold (presently): No Do You Snore Loudly (louder than talking or can be heard): No Do You Often Feel Tired/ Fatigued/ Sleepy Dring Daytime?: No Has Anyone Observed You Stop Breathing During Sleep?: No Result (for STOP score): Negative Hx Smoking: No Smoking Status: Never smoker Gastrointestinal Controlled With Meds: No Hx Gastrointestinal Disorders: No Hx Gastrointestinal Bleed: No Hx Ulcer: No Hx Hiatal Hernia: No Difficulty Chewing/Swallowing: No Special diet followed at home: No Hx Unplanned Weight Loss of 20#: No HX Unplanned Weight Gain of 20#: No Neurological Hx Seizures: No HX Syncope/Blackout Spells/Unconsciousness: No Hx Transient Ischemic Attacks (TIA): No Hx Multiple Sclerosis: No Hx Parkinson's Disease: No Hx Head/Neck Injury: No Hx Headaches: No Hx Back Injury/Pain: No Recent Onset of Speech Difficulty: No Restless Legs: No Does patient have nerve stimulator: No Blood Disorder Hx Leukemia: No Bleeding Tendencies: No Hx Deep Vein Thrombosis: No Hx High Cholesterol: No Blood Transmitted Disease: No Hx Hepatitis: No Hx Cirrhosis: No Hx Anemia: No Hx Blood Disorders: No Reproduction : No Is Patient Lactating: No Hx Hysterectomy: No Hx Tubal Ligation: No Are You Post Menopause: No Genitourinary Hx Renal Disease: No Hx Dialysis: No Musculoskeletal Hx Arthritis: Yes Hx Rheumatoid Arthritis: No Hx Gout: No Recent Onset of an Orthopedic Problem: Yes (right knee) Endocrine Hx Diabetes: No Insulin: No Thyroid Disease: No Hx Steroid Therapy: No Psycho/Social Hx Substance Use: No Hx Alcohol Use: No (social-rare) Hx Anxiety: No Hx Depression: No Mental Illness: No Hx Dementia: No Miscellaneous Hx Cancer: Yes (skin) Recent Exposure to Contagious Disease: No Hx of C-Diff: No Any Loose Teeth: No Allergies hydrocodone (From Vicodin) Adverse Reaction (Verified 02/25/24 08:45) Nausea/Vom/Diarrhea Maternal: - (Cholecystitis) Discharge Is Pt Admitted From a Senior Care, or a [facility]: No After D/C, Where Do you Plan to Go: Return Home Vital Signs Vital Signs Vital Signs: 02/25/24 08:46 02/25/24 08:46 Temperature 97.5 F L Temperature Source Temporal Pulse Rate 83 Respiratory Rate 16 Respiratory Pattern Normal Blood Pressure 127/71 H Blood Pressure Mean 89 Blood Pressure Source Monitor Blood Pressure Position Semi-Fowlers Blood Pressure Location Left Arm Pulse Ox 100 Oxygen Delivery Method Room Air Weight Weight: 194 lb 7.163 oz Body Mass Index (BMI) 29.5 Physical Exam Const alert and oriented x3 HEENT normocephalic Eyes PERRL Resp normal respiratory effort and normal air movement Cardio regular rate and regular rhythm GI soft to palpation, non-tender and non-distended Extremity normal to inspection Assessment & Plan Assessment/Plan (1) Encounter for screening for malignant neoplasm of colon: PLAN: I explained endoscopy in detail to the patient. I explained the risks including but not limited to stroke or heart attack with anesthesia, perforation of the GI tract, bleeding, infection. I explained that any of these could necessitate further emergency surgery. The patient understands and all questions were answered sufficiently. The patient wishes to proceed with procedure. Galindo Gonzalez MD Pager: [facility] [address] [place] [address], [address] [place] [address] Office: Surgery Risks - Colonoscopy Risks Include but are not Limited To: Risks include but are not limited to: Bleeding, perforation requiring further surgery, inability to complete colonoscopy requiring barium enema.
--- NOTE | 2024-02-25 09:30 | COLBX_PTH ---
PATIENT: DOMINIQUE CONCEPCION LOC: EN U#:[id number] AGE/SX: 54/F ROOM: RE02/25/[address]: Dr. Galindo Gonzalez MD : 1970 BED: DIS: 02/25/2024 SPEC #: [id number] RECD: 02/25/24 11:52 STATUS: MAIKOL ANDREA #: [id number] VINOD: 02/25/24 09:[address]: Galindo Gonzalez DEPT: SURGICAL PATHOLOGY RECD BY: Sylvia Lucio ENTERED: 02/25/24 13:09 SP TYPE: COLON BX OTHR DR: Dr. Burak Wang MD Tissues: Rectum, NOS Procedures: Surgery Specimen Level IV HEADER OPERATION: Colonoscopy and polypectomy PRE-OP DIAGNOSIS: Screening TISSUE SUBMITTED: Rectal polyp MICROSCOPIC DIAGNOSIS Rectal polyp, polypectomy: Hyperplastic polyp. NICHOLE/ 02/28/2024 MICROSCOPIC DESCRIPTION Slides are reviewed. GROSS DESCRIPTION Received in fixative is one container labeled with the patient's name and designated Rectal polyp. The specimen consists of one irregular fragment of light alva soft tissue that measures 0.4 x 0.4 x 0.1 cm. The specimen is totally submitted in one cassette. 02/25/2024 TC:1 CPT:96220
--- NOTE | 2024-02-25 10:04 | OP.CCLET_ITS ---
02/25/2024 Burak Wang [address] [place] [address] Re : Colonoscopy procedure for Sebastian Newell Dear Dr. Wang This procedure was performed on Sunday, February 25, 2024. My impressions and recommendations are as follows: Impressions : - One small polyp in the rectum, removed with a cold biopsy forceps. Resected and retrieved. - The entire examined colon is normal on direct and retroflexion views. Recommendations : - Discharge patient to home. - Resume previous diet. - Continue present medications. - Await pathology results. - Repeat colonoscopy after studies are complete for surveillance. My findings are described in the full procedure note, which is enclosed. If I can be of further assistance, please feel free to contact me at Doctor phone number(s): , Work: . Sincerely, Galindo Gonzalez MD 02/25/2024 10:04:05 AM This report has been signed electronically.
--- NOTE | 2024-02-25 10:04 | OP.COLON_ITS ---
Patient Name: Sebastian Newell Procedure Date: 02/25/2024 9:09 AM Date of : 1970 Age: 54 Procedure: Colonoscopy Indications: Screening for colorectal malignant neoplasm Providers: Galindo Gonzalez MD Medicines: Propofol per Anesthesia Patient Profile: This is a 54 year old female. Refer to note in patient chart for documentation of history and physical. Last Colonoscopy: none. The patient's first colonoscopy is today. Complications: No immediate complications. Procedure: Pre-Anesthesia Assessment: - Prior to the procedure, a History and Physical was performed, and patient medications and allergies were reviewed. The patient's tolerance of previous anesthesia was also reviewed. The risks and benefits of the procedure and the sedation options and risks were discussed with the patient. All questions were answered, and informed consent was obtained. Prior Anticoagulants: The patient has taken no anticoagulant or antiplatelet agents. After reviewing the risks and benefits, the patient was deemed in satisfactory condition to undergo the procedure. After I obtained informed consent, the scope was passed under direct vision. Throughout the procedure, the patient's blood pressure, pulse, and oxygen saturations were monitored continuously. The colonoscope was introduced through the anus and advanced to the cecum, identified by appendiceal orifice and ileocecal valve. The colonoscopy was performed without difficulty. The patient tolerated the procedure well. The quality of the bowel preparation was good. The ileocecal valve, appendiceal orifice, and rectum were photographed. Scope In: 9:41:33 AM Scope Withdrawal Time 0 hours 5 minutes 59 seconds Scope Out: 9:57:46 AM Total Procedure Duration Time 0 hours 16 minutes 13 seconds Findings: A small polyp was found in the rectum. The polyp was removed with a cold biopsy forceps. Resection and retrieval were complete. The entire examined colon appeared normal on direct and retroflexion views. Impression: - One small polyp in the rectum, removed with a cold biopsy forceps. Resected and retrieved. - The entire examined colon is normal on direct and retroflexion views. Recommendation: - Discharge patient to home. - Resume previous diet. - Continue present medications. - Await pathology results. - Repeat colonoscopy after studies are complete for surveillance. Procedure Code(s): --- Professional --- 42982, Colonoscopy, flexible; with biopsy, single or multiple Diagnosis Code(s): --- Professional --- Z12.11, Encounter for screening for malignant neoplasm of colon D12.8, Benign neoplasm of rectum CPT copyright 2021 [employer]. All rights reserved. The codes documented in this report are preliminary and upon cpc coder review may be revised to meet current compliance requirements. Galindo Gonzalez MD 02/25/2024 10:04:05 AM This report has been signed electronically. Number of Addenda: 0 Note Initiated On: 02/25/2024 9:09 AM
--- NOTE | 2024-02-25 10:06 | PCM.POST.ANE ---
Anesthesia: Postop Eval I Current Vital Signs Temperature: 97.5 F Pulse Rate: 71 Blood Pressure: 112/61 Respiratory Rate: 16 Pulse Ox: 99 Oxygen Delivery Method: Room Air Assessment Airway patent: Yes Spontaneous unlabored respirations: Yes Mental status: Awake and Calm nausea: No Vomiting: No Anesthesia Complication: No Fluid Hydration Crystalloid volume administer (ml): 800 Total IV fluid infused: 800 Progress Note Anesthesia document: Postop Eval 1 completed: Yes
--- NOTE | 2024-02-25 15:42 | PCM.POSTANE2 ---
Anesthesia Postop Eval I Sum Postop Eval Completion status Anesthesia document: Postop Eval 1 completed: Yes Anesthesia Postop Eval I Summary Anesthesia Postop Eval I Summary: Anesthesia Postop Eval I: Assessment Summary Airway patent Yes 02/25/24 10:07 [email or web address] Spontaneous unlabored Yes 02/25/24 10:07 [email or web address] respirations Mental status Awake,Calm 02/25/24 10:07 [email or web address] nausea No 02/25/24 10:07 [email or web address] Vomiting No 02/25/24 10:07 [email or web address] Anesthesia Postop Eval I: Fluid Summary Crystalloid volume administer 800 02/25/24 10:07 [email or web address] (ml) Colloids volume administered ( ml) Blood Product volume administered (ml) Total IV fluid infused 800 02/25/24 10:07 [email or web address] Anesthesia Postop Eval I: Summary Notes Anesthesia Complication No 02/25/24 10:07 [email or web address] Anesthesia Complication Comment: Post-operative progress note Anesthesia: Postop Eval II Evaluation Mental status: Awake Pain Level: 0 nausea: No Vomiting: No
== END 2024-02-25 10:58 | disposition home or self-care (01) ==
LOC: EN 08:24 → AC 08:26
PROVIDERS: PCP Family Medicine; Referring Provider Family Medicine; Visit Provider Surgery
PROC: 0DJD8ZZ Inspection of Lower Intestinal Tract, Via Natural or Artificial Opening Endoscopic (ICD-10-PCS; CPT 45378; principal; 2024-02-25 09:25)
DX: Z12.11 Encounter for screening for malignant neoplasm of colon (principal); K62.1 Rectal polyp; N95.1 Menopausal and female climacteric states; M19.90 Unspecified osteoarthritis, unspecified site; Z88.5 Allergy status to narcotic agent; Z90.49 Acquired absence of other specified parts of digestive tract; Z85.820 Personal history of malignant melanoma of skin
CPT/HCPCS: 45380; 88305; J7120; J2405

== ENCOUNTER → 2025-01-09 | Outpatient (CLI) | payer OTHER, SELFPAY ==
--- OUTSIDE RECORDS SUMMARY | 2025-01-09 07:11 | XMS RPT_ITS | CCD ---
Author Organization [facility] Care Team Providers Care Platform Stapler Name Role Phone Miguel Harvey MD Unavailable Dr. Burak Wang Primary Care Provider 1([facility] )[phone] Dr. Burak Wang Referring Provider 1([facility])[phone] Tresa PARACHUTE RIGGER, PARACHUTE RIGGER-C Kesha Attending Provider 1([facility] )[phone] Dr. Burak Wang Primary Care Provider 1([facility] )[phone] Dr. Burak Wang Referring Provider 1([facility])[phone] Tresa PARACHUTE RIGGER, PARACHUTE RIGGER-C Kesha Attending Provider Dr. Burak Wang Primary Care Provider 1([facility] )[phone] Dr. Burak Wang Referring Provider 1([facility])[phone] Katalina GALE, PA Dorinda Yan Attending Provider Dr. Burak Wang MD Primary Care Provider Dr. Burak Wang MD Referring Provider 1([facility] )[phone] Tresa PARACHUTE RIGGER-C, Kesha Attending Provider 1([facility])[phone] Galindo Gonzalez Attending Unavailable Burak Wang Primary Care Unavailable Burak Wang Referring Unavailable [place] PARACHUTE RIGGER, Kesha Attending Unavailable [place] PARACHUTE RIGGER, Kesha Referring Unavailable Burak Wang Primary Care Unavailable Tresa PARACHUTE RIGGER, Kesha Attending Unavailable Tresa PARACHUTE RIGGER, Kesha Referring Unavailable Burak Wang Primary Care Unavailable [place] PARACHUTE RIGGER, Kesha Attending Unavailable Burak Wang Referring Unavailable Burak Wang Primary Care Unavailable Galindo Gonzalez Attending Unavailable Burak Wang Referring Unavailable Burak Wang Primary Care Unavailable Galindo Gonzalez Consulting Unavailable Allergies Allergy Classification Reported Allergen(s) Allergy Type Date of Onset Reaction(s) Facility (1 source) Acetaminophen / HYDROcodone Drug Allergy 9 [facility] Work Phone: (1 source) nickel; Translations: [NICKEL] Drug Allergy 9 [facility] Work Phone: (1 source) FRAGRANCES; Translations: [FRAGRANCES] allergy to substance 9 [facility] Work Phone: (3 sources) Acetaminophen Drug Allergy 2 Nausea/Vom/Ines [facility] (7 sources) HYDROcodone Drug Allergy 2 Nausea/Vom/Ines [facility] (1 source) HYDROcodone Drug Allergy 5 [facility] Repository Medications Current Medications Medication Drug Class(es) Dates Sig (Normalized) Sig (Original) amoxicillin 500 mg oral capsule (1 source) Penicillin-class Antibacterial Start: 02-23-2024 take 1 capsule by mouth three times daily as needed Amoxicillin 500 mg capsule Active 500 mg PO THREE TIMES A DAY as needed for SURGERY POST KNEE REPLACEMENT February 23, 2024 12:00am calcium carbonate 1500 mg oral tablet (4 sources) Start: 12-29-2022 take 1 tablet by mouth once daily Calcium Carbonate (Calcium 600) 600 mg calcium (1,500 mg) tablet Active 600 mg PO DAILY December 29, 2022 12:00am 84 hr estradiol 0.75925 mg/hr / norethindrone acetate 0.97981 mg/hr transdermal system (8 sources) Estrogen Start: 01-08-2025 Estradiol-Norethi ndrone Acet (Combipatch) 0.05-0.14 mg/24 hr patch semiweekly Active 1 NMA TD TWICE A WEEK 04 09January 08, 2025 8:28am apply 1 patch every 4 days Start: 01-27-2023 End: 01-08-2025 Estradiol-Norethindrone Acet (Combipatch) 0.05-0.14 mg/24 hr patch semiweekly Discontinued 1 NMA TD TWICE A WEEK 24 January 04, 2024 9:00am January 08, 2025 8:30am apply 1 patch every 3 days alternating with 1 patch every 4 days Start: 01-27-2023 End: 03-02-2023 Estradiol-Norethindrone Acet (Combipatch) 0.05-0.14 mg/24 hr patch semiweekly Active 1 PATCH TD TWICE A WEEK March 02, 2023 9:59am apply 1 patch every 3 days alternating with 1 patch every 4 days meloxicam 15 mg oral tablet (11 sources) Nonsteroidal Anti-inflammatory Drug Start: 12-29-2022 take 1 tablet by mouth once daily Meloxicam 15 mg tablet Active 15 mg PO DAILY December 29, 2022 12:00am Start: 11-28-2019 End: 12-03-2020 take 1 tablet by mouth once daily Meloxicam 15 mg tablet Discontinued 15 mg PO DAILY November 28, 2019 12:00am December 03, 2020 8:37am Multivitamin preparation (6 sources) Start: 12-04-2021 take 1 tablet by mouth once daily Multivitamin Active 1 TABLET PO DAILY December 03, 2021 11:00pm Start: 12-04-2021 take 1 tablet by yeni th once daily Multivitamin Active 1 TABLET PO DAILY December 04, 2021 12:00am Multivitamin tablet (1 source) Start: 12-04-2021 Multivitamin t ablet Active 1 {tbl} PO DAILY December 04, 2021 12:00am Semaglutide (Weight Loss) (1 source) Start: 01-04-2024 Semaglutide (W eight Loss) (Amado) 1.7 mg/0.75 mL pen injector Active 1.7 mg SC January 04, 2024 12:00am administer weeks 13 through 16 of therapy Completed/Discontinued Medications Medication Drug Class(es) Dates Sig (Normalized) Sig (Original) acetaminophen 500 mg oral tablet (7 sources) Start: 01-17-2019 End: 12-29-2022 take 2 tablets by mouth every six hours as needed for pain Acetaminophen 500 MG tablet Discontinued 1000 mg PO EVERY 6 HOURS NEEDED as needed for Pain 100 0 January 17, 2019 12:00am December 29, 2022 8:25am Start: 01-17-2019 End: 12-29-2022 take 1000 mg by mouth every six hours as needed Acetaminophen Discontinued 1000 MG PO EVERY 6 HOURS NEEDED January 16, 2019 11:00pm December 29, 2022 7:25am acetaminophen 325 mg / oxyCODONE hydrochloride 5 mg oral tablet (7 sources) Opioid Agonist Start: 06-18-2017 End: 11-25-2017 Oxycodone-Acetaminophen 1 TABLET tablet Discontinued 1 - 2 {tbl} PO EVERY 4 HOURS NEEDED as needed for Pain June 18, 2017 1:00am November 25, 2017 8:42am Acute cholecystitis Acute cholecystitis Start: 06-18-2017 End: 11-25-2017 take 1 tablet by mouth every four hours as needed Oxycodone-Acetaminophen Discontinued 1 - 2 TABLET PO EVERY 4 HOURS NEEDED June 18, 2017 12:00am November 25, 2017 7:42am cephalexin 500 mg oral capsule (7 sources) Cephalosporin Antibacterial Start: 01-20-2020 End: 12-03-2020 take 1 capsule by mouth three times daily Cephalexin 500 mg capsule Discontinued 500 mg PO THREE TIMES A DAY 15 0 January 20, 2020 12:00am December 03, 2020 8:37am Desogestrel-Ethin yl Estradiol (20 sources) Progestin, Estrogen Start: 11-28-2019 End: 12-03-2020 take 1 tablet by mouth once daily Desogestrel-Ethiny l Estradiol 0.15-0.03 mg tablet Discontinued 1 {tbl} PO DAILY 84 3 November 28, 2019 10:58am December 03, 2020 8:37am Active pills only for continuous cycling Start: 11-28-2019 End: 12-03-2020 take 1 tablet by mouth once daily Desogestrel-Ethinyl Estradiol Discontinued 1 TABLET PO DAILY November 28, 2019 9:58am December 03, 2020 7:37am Active pills only for continuous cycling Start: 11-28-2019 End: 12-03-2020 take 1 tablet by mouth once daily Desogestrel-Ethinyl Estradiol Discontinued 1 TABLET PO DAILY November 28, 2019 10:58am December 03, 2020 8:37am Active pills only for continuous cycling Start: 09-12-2019 End: 11-28-2019 take 1 tablet by mouth once daily Desogestrel-Ethinyl Estradiol 0.15-0.03 mg tablet Discontinued 1 {tbl} PO DAILY 84 1 September 12, 2019 9:58am November 28, 2019 10:58am Active pills only for continuous cycling Start: 09-12-2019 End: 11-28-2019 take 1 tablet by mouth once daily Desogestrel-Ethinyl Estradiol Discontinued 1 TABLET PO DAILY 84 September 12, 2019 8:58am November 28, 2019 9:58am Active pills only for continuous cycling Start: 09-12-2019 End: 11-28-2019 take 1 tablet by mouth once daily Desogestrel-Ethinyl Estradiol Discontinued 1 TABLET PO DAILY 84 September 12, 2019 9:58am November 28, 2019 10:58am Active pills only for continuous cycling Start: 06-20-2019 End: 09-12-2019 take 1 tablet by mouth once daily Desogestrel-Ethinyl Estradiol 0.15-0.03 mg tablet Discontinued 1 {tbl} PO DAILY 84 June 20, 2019 3:05pm September 12, 2019 9:58am Active pills only for continuous cycling Start: 06-20-2019 End: 09-12-2019 take 1 tablet by mouth once daily Desogestrel-Ethinyl Estradiol Discontinued 1 TABLET PO DAILY June 20, 2019 2:05pm September 12, 2019 8:58am Active pills only for continuous cycling Start: 06-20-2019 End: 09-12-2019 take 1 tablet by mouth once daily Desogestrel-Ethinyl Estradiol Discontinued 1 TABLET PO DAILY June 20, 2019 3:05pm September 12, 2019 9:58am Active pills only for continuous cycling Start: 05-31-2019 APRI 0.15-30 M G-MCG TABS 1 tablet daily DESOGESTREL-ETHINYL ESTRADIOL [id number] Zina Rocha LPN Start: 03-01-2019 End: 06-20-2019 take 1 tablet by mouth once daily Desogestrel-Ethinyl Estradiol 0.15-0.03 mg tablet Discontinued 1 {tbl} PO DAILY 84 March 01, 2019 10:41am June 20, 2019 3:05pm Active pills only for continuous cycling Start: 03-01-2019 End: 06-20-2019 take 1 tablet by mouth once daily Desogestrel-Ethinyl Estradiol Discontinued 1 TABLET PO DAILY 84 Meggan 18th, 2019 9:41am June 20, 2019 2:05pm Active pills only for continuous cycling Start: 03-01-2019 End: 06-20-2019 take 1 tablet by mouth once daily Desogestrel-Ethinyl Estradiol Discontinued 1 TABLET PO DAILY March 01, 2019 10:41am June 20, 2019 3:05pm Active pills only for continuous cycling Start: 02-27-2019 End: 03-01-2019 take 1 tablet by mouth once daily Desogestrel-Ethinyl Estradiol 0.15-0.03 mg tablet Discontinued 1 {tbl} PO DAILY 84 February 27, 2019 9:36am March 01, 2019 10:42am Active pills only for continuous cycling Start: 02-27-2019 End: 03-01-2019 take 1 tablet by mouth once daily Desogestrel-Ethinyl Estradiol Discontinued 1 TABLET PO DAILY February 27, 2019 8:36am March 01, 2019 9:42am Active pills only for continuous cycling Start: 02-27-2019 End: 03-01-2019 take 1 tablet by mouth once daily Desogestrel-Ethinyl Estradiol Discontinued 1 TABLET PO DAILY February 27, 2019 9:36am March 01, 2019 10:42am Active pills only for continuous cycling Start: 02-26-2019 End: 02-27-2019 take 1 tablet by mouth once daily Desogestrel-Ethinyl Estradiol 0.15-0.03 mg tablet Discontinued 1 {tbl} PO DAILY 84 February 26, 2019 6:57pm February 27, 2019 9:36am Active pills only for continuous cycling Start: 02-26-2019 End: 02-27-2019 take 1 tablet by mouth once daily Desogestrel-Ethinyl Estradiol Discontinued 1 TABLET PO DAILY February 26, 2019 5:57pm February 27, 2019 8:36am Active pills only for continuous cycling Start: 02-26-2019 End: 02-27-2019 take 1 tablet by mouth once daily Desogestrel-Ethinyl Estradiol Discontinued 1 TABLET PO DAILY February 26, 2019 6:57pm February 27, 2019 9:36am Active pills only for continuous cycling Start: 01-03-2019 End: 02-26-2019 Desogestrel-Ethinyl Estradio l 1 EACH tablet Discontinued 1 NMA PO DAILY January 03, 2019 12:00am February 26, 2019 6:58pm Start: 01-03-2019 End: 02-26-2019 Desogestrel-Ethinyl Estradio l Discontinued 1 EACH PO DAILY January 02, 2019 11:00pm February 26, 2019 5:58pm Start: 01-03-2019 End: 02-26-2019 Desogestrel-Ethinyl Estradio l Discontinued 1 EACH PO DAILY January 03, 2019 12:00am February 26, 2019 6:58pm Start: 11-25-2017 End: 12-20-2018 Desogestrel-Ethinyl Estradio l 0.15-0.03 mg tablet Discontinued 1 {tbl} PO .COMPLEX 84 November 25, 2017 8:56am December 20, 2018 4:25pm 1 tab PO continuous cycling up to 12 weeks Start: 11-25-2017 End: 12-20-2018 Desogestrel-Ethinyl Estradio l Discontinued 1 TABLET PO .COMPLEX 84 November 25, 2017 7:56am December 20, 2018 3:25pm 1 tab PO continuous cycling up to 12 weeks Start: 11-25-2017 End: 12-20-2018 Desogestrel-Ethinyl Estradio l Discontinued 1 TABLET PO .COMPLEX 84 November 25, 2017 8:56am December 20, 2018 4:25pm 1 tab PO continuous cycling up to 12 weeks Start: 06-16-2017 End: 11-25-2017 Desogestrel-Ethinyl Estradio l 1 EACH tablet Discontinued 1 {tbl} PO DAILY June 16, 2017 1:00am November 25, 2017 8:58am Start: 06-16-2017 End: 11-25-2017 take 1 tablet by mouth once daily Desogestrel-Ethinyl Estradiol Discontinued 1 TABLET PO DAILY June 16, 2017 12:00am November 25, 2017 7:58am Start: 06-16-2017 End: 11-25-2017 take 1 tablet by mouth once daily Desogestrel-Ethinyl Estradiol Discontinued 1 TABLET PO DAILY June 16, 2017 1:00am November 25, 2017 8:58am diclofenac sodium 50 mg delayed release oral tablet (20 sources) Nonsteroidal Anti-inflammatory Drug Start: 04-13-2019 End: 11-28-2019 Diclofenac Sodium 50 mg tablet,delayed release (DR/EC) Discontinued 50 mg PO .COMPLEX as needed for pain 30 April 13, 2019 12:00am November 28, 2019 10:35am 50 mg PO 2-3 times daily PRN; Start: 11-09-2018 End: 04-12-2019 take 1 tablet by mouth twice daily Diclofenac Sodium 75 mg tablet,delayed release (DR/EC) Discontinued 75 mg PO TWICE A DAY 60 0 December 16, 2018 9:10am April 12, 2019 11:14am etodolac 500 mg oral tablet (8 sources) Nonsteroidal Anti-inflammatory Drug Start: 05-17-2019 End: 11-28-2019 take 1 tablet by mouth twice daily Etodolac 500 mg tablet Discontinued 500 mg PO TWICE A DAY 60 1 May 17, 2019 1:00am November 28, 2019 10:35am Do not take with other NSAIDs FAMOTIDINE TABS (1 source) Histamine-2 Receptor Antagonist Start: 05-31-2019 PEPCID TABS as needed as directed FAMOTIDINE TABS [id number] Zina Rocha LPN [id number] AC-CA FRUCTO (1 source) Start: 05-31-2019 MOVE FREE JOINT HEALTH ADVANCE TABS as directed [id number] AC-CA FRUCTO [id number] Zina Rocha LPN MULTIPLE VITAMINS-MINERALS (1 source) Start: 05-31-2019 MULTIVITAMIN WOMEN TABS 1 tablet daily MULTIPLE VITAMINS-MINERALS [id number] Zina Rocha LPN predniSONE 10 mg oral tablet (2 sources) Start: 03-28-2023 End: 01-04-2024 Prednisone 10 mg tablet Discontinued 10 mg PO .COMPLEX 30 0 March 28, 2023 12:00am January 04, 2024 8:51am Take 4 pills for 3 days, 3 pills for 3 days, 2 pills for 3 days, take 1 pill for 3 days traMADol hydrochloride 50 mg oral tablet (7 sources) Opioid Agonist Start: 01-17-2019 End: 01-25-2019 take 1 tablet by mouth every four hours as needed for pain Tramadol 50 MG tablet Discontinued 50 mg PO EVERY 4 HOURS NEEDED as needed for Pain 42 7 January 17, 2019 12:00am January 23, 2019 12:00am January 25, 2019 12:07am Other acute postprocedural pain prn pain 24 hr venlafaxine 37.5 mg extended release oral capsule (6 sources) Serotonin and Norepinephrine Reuptake Inhibitor Start: 01-01-2023 End: 01-27-2023 take 1 capsule by mouth once daily Venlafaxine (Effexor Xr) 37.5 mg capsule,extended release 24hr Discontinued 37.5 mg PO DAILY 90 4 January 25, 2023 10:47am January 27, 2023 11:35am Problems Active Problems Problem Classification Problem Date Documented Date Episodic/Chronic Allergic reactions (3 sources) Contact dermatitis due to poison jaziel; Translations: [Allergic contact dermatitis due to plants, except food] 03-28-2023 Episodic Malaise and fatigue (6 sources) Fatigue; Translations: [Other fatigue] 12-29-2022 Episodic Menopausal disorders (6 sources) Menopausal syndrome; Translations: [Menopausal and female climacteric states] 12-29-2022 Chronic Comment on above: combipatch Osteoarthritis (1 source) Osteoarthritis of right knee joint; Translations: [Unilateral primary osteoarthritis, right knee] Onset: 06-12-2019 06-12-2019 Other screening for suspected conditions (not mental disorders or infectious disease) (4 sources) Encounter for screening mammogram for malignant neoplasm of breast; Translations: [Encounter for screening for malignant neoplasm of colon] Onset: 02-28-2024 Episodic Past or Other Problems Problem Classification Problem Date Documented Da te Episodic/Chronic Unclassified (1 source) Problem Results Test Name Value Interpretation Reference Range Facility Training And Development Head Office Visit Reporton 01-08-2025 Training And Development Head Office Visit Report [facility] [address], [address] [place] [address] OFFICE VISIT Date of Service: 01/08/25 MR#: [id number] Acct: [id number] Name: CARLENESEBASTIAN HARMAN Rep #: [id number] : 1970 Provider: GIRISH iniguez Age/Sex: 55/F Location[place] [facility] [place] [facility] [place] Status: Signed Intake Vital Signs 02/25/24 08:46 01/08/25 08:21 Height 5 ft 8 in 5 ft 8 in Weight: 185 lb 4 oz BMI 28.1 BP 114/76 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: No Is patient in pain?: No Allergies hydrocodone (From Vicodin) Adverse Reaction (Verified 01/08/25 08:27) Nausea/Vom/Diarrhea Medications ???Medication ???Instructions ???Recorded ???Confirmed ???Type multivitamin 1 tab PO DAILY 12/04/21 01/08/25 H istory calcium carbonate (Calcium 600) 600 mg PO DAILY 12/29/22 01/08/25 History meloxicam 15 mg tablet 15 mg PO DAILY 12/29/22 01/08/25 H istory semaglutide (weight loss) 1.7 1.7 mg subcut TU 01/04/24 01/08/25 History mg/0.75 mL subcutaneous pen injector (Wegovy) amoxicillin 500 mg capsule 500 mg PO TID PRN SURGERY POST 05/0701/08/25 History KNEE REPLACEMENT estradiol 0.05 mg-norethindrone 1 patch transdermal 2XW #24 ea 01/08/25 Rx 0.14 mg/24 hr semiwkly transderm patch (CombiPatch) Patient : No : No PFSH Medical History Wears glasses Cancer Osteoarthritis Gastric reflux Heartburn Non-smoker Abnormal Pap smear of cervix History of melanoma Surgical History History of meniscectomy of left knee H/O meniscectomy of right knee S/P cholecystectomy History of partial knee replacement basal cell removed excision of malignancy melanoma H/O foot surgery [place] teeth extracted Social History household members: spouse current occupational status: employed Smoking Status: Never smoker alcohol intake: current details: social substance use type: does not use caffeine: No what type of physical activity do you participate in: walking frequency: 3-4 times per week seatbelt use: always do you feel safe at home: Yes additional social history: 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 Date Name GA/Weeks Outcome Route Bth Weight Gen Labor Lgth Anesthesia Del Locatn Provider FOB Unknown 1989 T[place]ana Unknown 1995 [place] HPI Encounter for routine gynecological examination Details: SEBASTIAN CONCEPCION is a 55 year old who presents for annual exam. Denies concerns Last PAP: 2020; normal. HPV neg. History of abnormal PAP: no Last mammogram: 2023; normal. History of abnormal mammogram: no Colon cancer screenin; normal. Other preventative health care screenings: Dr. Wang; PCP Female Reproductive History Questions: metorrhagia: No, sexually active: Yes, dyspareunia: No and PCB: No Menopausal Treatment: Yes HRT ROS Const Constitutional: Denies fatigue, weight gain or weight loss Cardio Card: Denies chest pain Resp Resp: Denies cough or dyspnea on exertion GI GI: Denies abdominal pain, bloating, change in stool character, constipation or vomiting : Reports as per HPI; Denies difficulty voiding, pelvic pain, urinary frequency, urinary incontinence, urinary urgency, vaginal discharge or vaginal pruritus Exam Const General: cooperative, healthy appearing, no acute distress and well developed Orientation: alert, oriented to person and oriented to place HENKY Head: normal to inspection Neck Neck: normal visual inspection Thyroid: thyroid normal Lymphatic: no lymphadenopathy noted Chest Breast inspection: normal inspection of the breasts and normal inspection of the axillae Breast palpation: normal palpation of the breasts, normal palpation of the axillae and no axillary lymphadenopathy Resp Effort Inspection: normal respiratory effort GI Palpation: soft, no masses and nontender Rectal Exam: deferred External Female Exam: normal external appearance and normal appearance of the urethra Urethra: normal appearance of the urethra and normal palpation Speculum Exam - Vagina: normal appearance of the vagina and normal vaginal discharge Speculum Exam - Cervix: normal appearance of the cervix Bimanual Exam- Vagina Uterus: normal bimanual exam, uterine size normal, uterine shape normal and non-tender Bimanual Exam- Adnexa, other: normal adnexae, no masses, normal and non-tender Pelvic Support: normal Neuro Gener (more content not included)... Normal [facility] Colonoscopy Reporton 024 Colonoscopy Report [facility] Medical Records Department [address] [place] [address] Colonoscopy Report MR#: [id number] Acct: [id number] Name: SEBASTIAN CONCEPCION Rep #: [id number] : 1970 54 From: Galindo Gonzalez MD PCP: Dr. Burak Wang MD Status:REG [facility] [place] Patient Name: Sebastian Concepcion Procedure Date: 02/25/2024 9:09 AM Date of : 1970 Age: 54 Procedure: Colonoscopy Indications: Screening for colorectal malignant neoplasm Providers: Galindo Gonzalez MD Medicines: Propofol per Anesthesia Patient Profile: This is a 54 year old female. Refer to note in patient chart for documentation of history and physical. Last Colonoscopy: none. The patient's first colonoscopy is today. Complications: No immediate complications. Procedure: Pre-Anesthesia Assessment: - Prior to the procedure, a History and Physical was performed, and patient medications and allergies were reviewed. The patient's tolerance of previous anesthesia was also reviewed. The risks and benefits of the procedure and the sedation options and risks were discussed with the patient. All questions were answered, and informed consent was obtained. Prior Anticoagulants: The patient has taken no anticoagulant or antiplatelet agents. After reviewing the risks and benefits, the patient was deemed in satisfactory condition to undergo the procedure. After I obtained informed consent, the scope was passed under direct vision. Throughout the procedure, the patient's blood pressure, pulse, and oxygen saturations were monitored continuously. The colonoscope was introduced through the anus and advanced to the cecum, identified by appendiceal orifice and ileocecal valve. The colonoscopy was performed without difficulty. The patient tolerated the procedure well. The quality of the bowel preparation was good. The ileocecal valve, appendiceal orifice, and rectum were photographed. Scope In: 9:41:33 AM Scope Withdrawal Time 0 hours 5 minutes 59 seconds Scope Out: 9:57:46 AM Total Procedure Duration Time 0 hours 16 minutes 13 seconds Findings: A small polyp was found in the rectum. The polyp was removed with a cold biopsy forceps. Resection and retrieval were complete. The entire examined colon appeared normal on direct and retroflexion views. Impression: - One small polyp in the rectum, removed with a cold biopsy forceps. Resected and retrieved. - The entire examined colon is normal on direct and retroflexion views. Recommendation: - Discharge patient to home. - Resume previous diet. - Continue present medications. - Await pathology results. - Repeat colonoscopy after studies are complete for surveillance. Procedure Code(s): --- Professional --- 84742, Colonoscopy, flexible; with biopsy, single or multiple Diagnosis Code(s): --- Professional --- Z12.11, Encounter for screening for malignant neoplasm of colon D12.8, Benign neoplasm of rectum CPT copyright 2021 [employer]. All rights reserved. The codes documented in this report are preliminary and upon coil strapper review may be revised to meet current compliance requirements. Galindo Gonzalez MD 02/25/2024 10:04:05 AM This report has been signed electronically. Number of Addenda: 0 Note Initiated On: 02/25/2024 9:09 AM 02/25/24 100 Date Galindo Gonzalez MD Cosigner Signature: Date (if indicated) CC: Dr. Galindo Gonzalez MD; Dr. Burak Wang MD Date Dictated: 02/25/24908 Date Transcribed: Epic Beacon Analyst: BALWINDER Maxwell [facility] MR/POSTOP.Cal 02-25-2024 MR/POSTOP.[facility] Medical Records Department [address] [place] [address] Anesthesia Postop Eval I 02/25/24 1006 MR#: [id number] Acct: [id number] Name: SEBASTIAN CONCEPCION Rep #: [id number] : 1970 54 From: Jose Thompson PCP: Dr. Burak Wang MD Status:REG SDC Y Race: C Location: [place] [address]-1 Anesthesia: Postop Eval I Current Vital Signs Temperature: 97.5 F Pulse Rate: 71 Blood Pressure: 112/61 Respiratory Rate: 16 Pulse Ox: 99 Oxygen Delivery Method: Room Air Assessment Airway patent: Yes Spontaneous unlabored respirations: Yes Mental status: Awake and Calm nausea: No Vomiting: No Anesthesia Complication: No Fluid Hydration Crystalloid volume administer (ml): 800 Total IV fluid infused: 800 Progress Note Anesthesia document: Postop Eval 1 completed: Yes 02/25/24 1007 Date Jose Adanrosalino Signature: Date CC: Signed Normal [facility] MR/[id number] 02-25-2024 [facility] Medical Records Department [address] [place] [address] Anesthesia Postop Eval II 02/25/24 1542 MR#: [id number] Acct: [id number] Name: SEBASTIAN CONCEPCION Rep #: [id number] : 1970 54 From: Scott Santiago MD PCP: Dr. Burak Wang MD Status:[facility] Y Race: C Location: EN Anesthesia Postop Eval I Sum Postop Eval Completion status Anesthesia document: Postop Eval 1 completed: Yes Anesthesia Postop Eval I Summary Anesthesia Postop Eval I Summary: Anesthesia Postop Eval I: Assessment Summary Airway patent Yes 02/25/24 10:07 [email or web address] Spontaneous unlabored Yes 02/25/24 10:07 [email or web address] respirations Mental status Awake,Calm 02/25/24 10:07 [email or web address] nausea No 02/25/24 10:07 [email or web address] Vomiting No 02/25/24 10:07 [email or web address] Anesthesia Postop Eval I: Fluid Summary Crystalloid volume administer 800 02/25/24 10:07 [email or web address] (ml) Colloids volume administered ( ml) Blood Product volume administered (ml) Total IV fluid infused 800 02/25/24 10:07 [email or web address] Anesthesia Postop Eval I: Summary Notes Anesthesia Complication No 02/25/24 10:07 [email or web address] Anesthesia Complication Comment: Post-operative progress note Anesthesia: Postop Eval II Evaluation Mental status: Awake Pain Level: 0 nausea: No Vomiting: No 02/25/24 1542 Date Scott Arguelles Signature: Date CC: Signed Normal [facility] Surgery Specimen Level Doron 02-25-2024 Surgery Specimen Level IV Patient Age/Sex Location Account Attending Physician SEBASTIAN CONCEPCION 54/F EN [id number] Dr. Galindo Gonzalez MD Specimen: [id number] Received: 02/25/24-1152 Status: MAIKOL Ramirez Num: [id number] Spec Type: COLON BX Subm Dr: Dr. Galindo Gonzalez MD HEADER OPERATION: Colonoscopy and polypectomy PRE-OP DIAGNOSIS: Screening TISSUE SUBMITTED: Rectal polyp MICROSCOPIC DIAGNOSIS Rectal polyp, polypectomy: Hyperplastic polyp. [facility] 02/28/2024 MICROSCOPIC DESCRIPTION Slides are reviewed. GROSS DESCRIPTION Received in fixative is one container labeled with the patient's name and designated Rectal polyp. The specimen consists of one irregular fragment of light alva soft tissue that measures 0.4 x 0.4 x 0.1 cm. The specimen is totally submitted in one cassette. [facility] 02/25/2024 TC:1 CPT:32873 Patient Age/Sex Location Account Attending Physician SEBASTIAN CONCEPCION 54/F EN [id number] Dr. Galindo Gonzalez MD Signed (signature on file) Dr. Gurvinder Abel MD 02/28/24 1027 Normal [facility] Comment on above: Performed By: #### P SUIV #### [facility] [address] [place] [address], [id number] SCRN MAMM (CAD)W/CHELITA BILATo n 01-10-2024 SCRN MAMM (CAD)W/CHELITA BILAT [facility] Imaging Services [address] [place] [address] [id number] SCRN MAMM (CAD)W/CHELITA BILAT MR#: [id number] Acct: [id number] Name: SEBASTIAN CONCEPCION Rep #: [id number] : 1970 F 54 From: Ramon gentile MD PCP: Dr. Burak Wang MD Status: [facility] Study: SCRN MAMM (CAD)W/CHELITA BILAT Date of Exam: 12/13 03/07 Exam# [id number] Ordering Dr: Kesha Gtz PARACHUTE RIGGER PARACHUTE RIGGER -C [id number] MAMMOGRAPHY - BILATERAL SCREENING REASON FOR EXAM: Female, 54 years old. Routine annual screening examination. PERTINENT HISTORY: Non-contributory. TECHNIQUE: Digital bilateral breast chelita (3D mammographic acquisition) in the CC and MLO projections. 2-D mediolateral oblique (MLO) and craniocaudad (CC) views of both breasts were obtained. CAD: Full Field Digital Mammography with Computer Added Detection was performed. COMPARISON: Comparison is made with prior study dated January 05, 2023 and January 02, 2022. FINDINGS: Breast Composition: The breasts are heterogeneously dense, which may obscure small masses. There are no dominant masses or suspicious calcifications. Stable small benign-appearing bilateral axillary lymph nodes. No other significant abnormalities are identified. There has been no significant change since the prior study. BI/SCRN MAMM (CAD)W/CHELITA BILAT IMPRESSION: Stable bilateral screening mammogram. Yearly follow-up mammogram recommended. (A) ASSESSMENT CATEGORY: BIRADS Category 2: Benign. A letter regarding these results will be sent to the patient by the facility within 30 days. Approximately 10% of breast cancers are not detected by mammography. A normal mammogram should not delay biopsy of a clinically suspicious abnormality. [id number] Electronically Signed: Ramon Catherine MD at 8:49 EDT , CC: GIRISH Gtz; Dr. Burak Wang MD Epic Beacon Analyst: Signed Normal [facility] Laboratory - Chemistry and C hemistry - challengeOrdered By: Kesha Gtz on 12-29-2022 Free T4 [Mass/Vol] 0.98 ng/dL 0.76-1.46 [facility] No Panel InformationOrdered By: Kesha Gtz on 12-29-2022 Thyroid Stimulating Hormone (TSH) 1.56 uIU/mL 0.358-3.74 [facility] Vitamin D 25-Hydroxy 41.8 ng/mL [facility] Comment on above: Vitamin D 25(OH) Sta tus Range Deficiency <20 ng/mL (50nmol/L) Insufficiency 20 - 30 ng/mL (50 - 75 nmol/L) Sufficiency 30 - 100 ng/mL (75 - 250 nmol/L) Toxicity >100 ng/mL (>250 nmol/L) Serum or plasma thyroperoxid ase antibody assay (units/volume)Ordered By: Kesha Gtz on 12-29-2022 TPO Ab Qn [IU]/mL 0-34 [facility] Comment on above: Performed at: [address] [id number] Director: Calos Moreno PhD, Phone: [phone] Absolute lymphocyte countOrd ered By: Kathryn Ace on 11-13-2022 Lymphocytes Auto (Unsp spec) [#/Vol] 3.67 10*3/uL 0.83-4.51 [facility] Basophil percentageOrdered B y: Kathryn Ace on 11-13-2022 Basophils/100 WBC (Bld) 1.0 % 0-1 [facility] Chloride [Moles/Vol] 105 mmol/L 98-107 [facility] Eosinophils/100 WBC (Bld) 3.3 % 0-5 [facility] Glucose [Mass/Vol] 95 mg/dL 74-106 [facility] Neutrophils (Bld) [#/Vol] 2.6 10*3/uL 2.0-7.7 [facility] Neutrophils/100 WBC (Bld) 36.9 % 47-70 [facility] Potassium [Moles/Vol] 4.3 mmol/L 3.5-5.1 [facility] Sodium [Moles/Vol] 140 mmol/L 136-145 [facility] WBC (Bld) [#/Vol] 7.1 10*3/uL 4.4-11.0 [facility] Blood erythrocytes count (nu mber/volume)Ordered By: Kathryn Ace on 11-13-2022 RBC (Bld) [#/Vol] 4.78 10*6/uL 4.2-5.4 [facility] Blood hemoglobin measurement (mass/volume)Ordered By: Kathryn Ace on 11-13-2022 Hemoglobin (Bld) [Mass/Vol] 14.0 g/dL 12.0-15.0 [facility] Blood lymphocytes/100 leukoc ytesOrdered By: Kathryn Ace on 11-13-2022 Lymphocytes/100 WBC (Bld) 51.9 % 19-41 [facility] Blood monocytes/100 leukocyt esOrdered By: Kathryn Ace on 11-13-2022 Monocytes/100 WBC (Bld) 6.8 % 0-10 [facility] Blood platelet mean volumeOr dered By: Kathryn Ace on 11-13-2022 Platelet mean volume (Bld) [Entitic vol] 10.1 fL 6.2-12.0 [facility] Determination of erythrocyte mean corpuscular volume (MCV)Ordered By: Kathryn Ace on 11-13-2022 MCV (RBC) [Entitic vol] 91.0 fL 81-99 [facility] Hematocrit Auto (Bld) [Volum e fraction]Ordered By: Kathryn Ace on 11-13-2022 Hematocrit (Bld) [Volume fraction] 43.5 % 37-47 [facility] - Chemistry and C hemistry - challengeOrdered By: Kathryn Ace on 11-13-2022 CO2 [Moles/Vol] 31.0 mmol/L 21.0-32.0 [facility] Urea nitrogen/Creatinine [Mass ratio] 20.5 mg/mg 10-20 [facility] - Hematology and Cell countsOrdered By: Kathryn Ace on 11-13-2022 Erythrocyte distribution width (RBC) [Entitic vol] 41.5 fL 35.1-43.9 [facility] Erythrocyte distribution width (RBC) [Ratio] 12.5 % 11.6-14.6 [facility] Immature granulocytes/100 WBC (Bld) 0.100 % 0.0-0.9 [facility] Comment on above: IG% - Immature Granu locytes (promyelocytes, myelocytes and metamyelocytes) > 1% indicates that a LEFT SHIFT is Present. MCH (RBC) [Entitic mass] 29.3 pg 27.0-32.0 [facility] Nucleated RBC/100 WBC (Bld) [Ratio] 0 % 0-5 [facility] MCHC Auto (RBC) [Mass/Vol]Or dered By: Kathryn Ace on 11-13-2022 MCHC (RBC) [Mass/Vol] 32.2 g/dL 32-36 [facility] No Panel InformationOrdered By: Kathryn Ace on 11-13-2022 Estimated GFR (MDRD) Amer 92 mL/min >60 [facility] Comment on above: GFR Calc Estimated GFR (MDRD) Non-Af Amer 76 mL/min >60 [facility] Comment on above: Non- GFR Calc Platelets bldOrdered By: Ellie Ace on 11-13-2022 Platelets (Bld) [#/Vol] 255 10*3/uL 150-450 [facility] Serum or plasma calcium mike urement (mass/volume)Ordered By: Kathryn Ace on 11-13-2022 Calcium [Mass/Vol] 10.0 mg/dL 8.5-10.1 [facility] Serum or plasma creatinine m easurement (mass/volume)Ordered By: aKthryn Ace on 11-13-2022 Creatinine [Mass/Vol] 0.83 mg/dL 0.55-1.02 [facility] Comment on above: The validity of the calculated GFR & GFRAA in patients over 70 years has not been determined. Clinical correlation is essential. Serum or plasma urea nitroge n measurement (mass/volume)Ordered By: Kathryn Ace on 11-13-2022 Urea nitrogen [Mass/Vol] 17 mg/dL 7-18 [facility] Thin prep Papanicolaou smear with manual screeningOrdered By: Kathryn Ace on 11-13-2022 Thin prep Papanicolaou smear with manual screening 4 5-15 [facility] Basophil percentageOrdered B y: Ruma Rebolledo on 09-07-2022 Bilirubin [Mass/Vol] 0.40 mg/dL 0.20-1.00 [facility] Comment on above: For patients on eltr ombopag therapy, use of Dimension [place] TBIL is not recommended. Chloride [Moles/Vol] 105 mmol/L 98-107 [facility] Cholesterol [Mass/Vol] 195 mg/dL <200 [facility] Comment on above: <200 mg/dL Desirable 200-240 mg/dL Borderline >240 mg/dL High Risk Glucose [Mass/Vol] 96 mg/dL 74-106 [facility] Potassium [Moles/Vol] 4.1 mmol/L 3.5-5.1 [facility] Protein [Mass/Vol] 7.0 g/dL 6.4-8.2 [facility] Sodium [Moles/Vol] 137 mmol/L 136-145 [facility] Triglyceride [Mass/Vol] 105 mg/dL <199 [facility] Comment on above: The drugs N-Acetylcy steine and Metamizole may falsely depress this assay.Serum Triglycerides Reference Interval Normal <150 mg/dL Borderline high 150 - 199 mg/dL High 200 - 499 mg/dL Very High > or = 500 mg/dL WBC (Bld) [#/Vol] 5.8 10*3/uL 4.4-11.0 [facility] Blood erythrocytes count (nu mber/volume)Ordered By: Ruma Rebolledo on 09-07-2022 RBC (Bld) [#/Vol] 4.60 10*6/uL 4.2-5.4 [facility] Blood hemoglobin measurement (mass/volume)Ordered By: Ruma Rebolledo on 09-07-2022 Hemoglobin (Bld) [Mass/Vol] 13.7 g/dL 12.0-15.0 [facility] Blood platelet mean volumeOr dered By: Ruma Rebolledo on 09-07-2022 Platelet mean volume (Bld) [Entitic vol] 9.8 fL 6.2-12.0 [facility] Determination of erythrocyte mean corpuscular volume (MCV)Ordered By: Ruma Rebolledo on 09-07-2022 MCV (RBC) [Entitic vol] 92.0 fL 81-99 [facility] Hematocrit Auto (Bld) [Volum e fraction]Ordered By: [facility] Amaury on 09-07-2022 Hematocrit (Bld) [Volume fraction] 42.3 % 37-47 [facility] - Chemistry and C hemistry - challengeOrdered By: Ruma Rebolledo on 09-07-2022 ALP [Catalytic activity/Vol] 73 U/L 45-117 [facility] ALT [Catalytic activity/Vol] 44 U/L 13-56 [facility] CO2 [Moles/Vol] 29.0 mmol/L 21.0-32.0 [facility] Globulin (S) [Mass/Vol] 3.5 g/dL 2.2-4.2 [facility] Urea nitrogen/Creatinine [Mass ratio] 32.8 mg/mg 10-20 [facility] - Hematology and Cell countsOrdered By: Ruma Rebolledo on 09-07-2022 Erythrocyte distribution width (RBC) [Entitic vol] 43.1 fL 35.1-43.9 [facility] Erythrocyte distribution width (RBC) [Ratio] 12.8 % 11.6-14.6 [facility] MCH (RBC) [Entitic mass] 29.8 pg 27.0-32.0 [facility] MCHC Auto (RBC) [Mass/Vol]Or dered By: Ruma Rebolledo on 09-07-2022 MCHC (RBC) [Mass/Vol] 32.4 g/dL 32-36 [facility] No Panel InformationOrdered By: Ruma Rebolledo on 09-07-2022 Estimated GFR (MDRD) Amer 118 mL/min >60 [facility] Comment on above: GFR Calc Estimated GFR (MDRD) Non-Af Amer 98 mL/min >60 [facility] Comment on above: Non- GFR Calc Platelets bldOrdered By: Jb Rebolledo on 09-07-2022 Platelets (Bld) [#/Vol] 265 10*3/uL 150-450 [facility] Serum or plasma albumin mike urement (mass/volume)Ordered By: Ruma Statsupriyaoulkate on 09-07-2022 Albumin [Mass/Vol] 3.5 g/dL 3.2-5.0 [facility] Serum or plasma albumin/glob ulin mass ratioOrdered By: Ruma Statsupriyaoulkate on 09-07-2022 Albumin/Globulin [Mass ratio] 1.0 {ratio} 0.9-2.4 [facility] Serum or plasma calcium imke urement (mass/volume)Ordered By: Ruma Engoulkate on 09-07-2022 Calcium [Mass/Vol] 9.2 mg/dL 8.5-10.1 [facility] Serum or plasma cholesterol in HDL measurement (mass/volume)Ordered By: Ruma Statmichelle on 09-07-2022 Cholesterol in HDL [Mass/Vol] 63 mg/dL >40 [facility] Comment on above: The drugs N-Acetylcy steine and Metamizole may falsely depress this assay. Reference Range HDL <40 mg/dL Low HDL Cholesterol HDL >or= 60 mg/dL High HDL Cholesterol Serum or plasma cholesterol in VLDL measurement (mass/volume)Ordered By: Ruma Statsupriyaoulkate on 09-07-2022 Cholesterol in VLDL [Mass/Vol] 21 mg/dL 5-40 [facility] Serum or plasma creatinine m easurement (mass/volume)Ordered By: Ruma Statmichelle on 09-07-2022 Creatinine [Mass/Vol] 0.67 mg/dL 0.55-1.02 [facility] Comment on above: The validity of the calculated GFR & GFRAA in patients over 70 years has not been determined. Clinical correlation is essential. Serum or plasma low density lipoprotein (LDL) cholesterol measurement (mass/volume)Ordered By: Ruma Weeding Technologiesmichelle on 09-07-2022 Cholesterol in LDL [Mass/Vol] 111 mg/dL 0-130 [facility] Serum or plasma urea nitroge n measurement (mass/volume)Ordered By: Ruma Statmichelle on 09-07-2022 Urea nitrogen [Mass/Vol] 22 mg/dL 7-18 [facility] Thin prep Papanicolaou smear with manual screeningOrdered By: Ruma Rebolledo on 09-07-2022 Thin prep Papanicolaou smear with manual screening 27 U/L 15-37 [facility] Thin prep Papanicolaou smear with manual screening 3 5-15 [facility] SEBASTIAN CONCEPCION ([id number]) 1970 F Date Time Provider Department 04/04/21 BEV SCANLON During your visit today, we recorded the following information about you: Ella Roy Ma 04/04/2021 2:00 PM Signed ----- Message from Bev Courtney sent at 04/04/2021 1:55 PM EDT ----- Please call patient to inform her that circulation appears normal. She can proceed with nail removal if she desires ADDIS Burgess Ma 04/04/2021 2:02 PM Signed Patient informed of information below. Patient voiced understanding. Allergies As of Date: 04/04/2021 Noted Allergy Reaction VICODIN (HYDROCODONE-ACETAMI NOPHE*08/28/2005 11 - Vomiting Date Reviewed: 03/26/2021 Reviewed by: Carrie Chavez RN - Fully Assessed Reason for Visit: Results [95] Prescriptions as of 04/04/2021 - Desogestrel-Ethinyl Estradiol (DESOGEN) 0.15-0.03 mg per tablet Take 1 tablet po daily continuous cycling up to 12 weeks Problem List As Of Date 04/04/2021 Noted Resolved DYSPLASIA OF CERVIX NOS [N87.9] 08/28/2005 11/21/2007 Encounter Status:Closed by ELLA ROY MA on 04/04/21 [facility] CNOVon 03-26-2021 CNOV Office Visit (PODIWS) SEBASTIAN CONCEPCION ([id number]) 1970 F Date Time Provider Department 03/26/21 10:45 AM DAYAJACQUESBEV During your visit today, we recorded the following information about you: Carrie Chavez RN 03/26/2021 12:31 PM Signed AMB ROOMING INTAKE FLOWSHEET DATA Risk Screening Do you have concerns about personal safety or safety in the home?: No Pain Pain Level: 10 Pain Location: Heel-Right Description: Sharp Duration Amount of Time: (patient states a few months) Duration Units: Months Frequency: Intermittent Intervention/Comfort measure: Reposition, Relaxation Patient presents with: Right Foot - Established Patient, Pain Patient c/o R heel pain for a few months. No injury. Bev ScanlonADDIS 03/26/2021 12:31 PM Signed Initial Podiatric Office Visit: Chief Complaint: This 51 year old female who presents with chief complaint:right heel pain HPI Patient presents to clinic for evaluation of right heel. She complains of pain in the right heel the first thing in the morning after rest or if she has been sitting for long period and then gets up to walk. Patient states that as she starts walking, the pain will lessen slightly but never fully resolve. Patient states the pain is currently 10/10. Past treatment has included: 1. Ibuprofen which does not really help 2. otc inserts but due to the hardness actually makes the pain worse. 3. Stretching 4. Icing. PAIN EVALUATION 03/26/2021 1106 Pain Level: 10 Pain Location: Heel-Right Description: Sharp Duration Amount of Time: ? patient states a few months Duration Units: Months Frequency: Intermittent Intervention/Comfort measure: Reposition;Relaxatio n No results found for: HBA1C PCP: Burak Ortiz MD PAST MEDICAL HISTORY Diagnosis Date - abnormal pap negative cervical biopsy 2006 Current Outpatient Medications Medication Sig - Desogestrel-Ethinyl Estradiol (DESOGEN) 0.15-0.03 mg per tablet Take 1 tablet po daily continuous cycling up to 12 weeks No current facility-administere d medications for this visit. ALLERGIES Allergen Reactions - Vicodin [Hydrocodon* Vomiting PAST SURGICAL HISTORY Procedure Laterality Date - PAST SURGICAL HISTORY OF 07/1998 WISDOM TEETH REMOVED - PAST SURGICAL HISTORY OF 1977 FOOT SURGERY - PAST SURGICAL HISTORY OF 2001 excision of malig. melanoma r shoulder - PAST SURGICAL HISTORY OF 10/2011 basil cell removed on chest FAMILY HISTORY Problem Relation Age of Onset - Arthritis Mother - Osteoporosis Maternal Grandmother Social History Tobacco Use - Smoking status: Never Smoker - Smokeless tobacco: Never Used Substance Use Topics - Alcohol use: Yes Comment: occasional - Drug use: No REVIEW OF SYSTEMS GENERAL: Negative for Malaise, significant weight loss, fever RESPIRATORY: Negative for cough, wheezing and shortness of breath CARDIOVASCULAR: Negative for chest pain, leg swelling and palpitations GI: Negative for abdominal discomfort, blood in stools or black stools and change in bowel habits : Negative for dysuria, frequency and incontinence MUSCULOSKELETAL: Negative for joint pain or swelling, back pain, and muscle pain. SKIN: Negative for lesions, rash, and itching. HEMATOLOGY/LYMPHOLOG Y Negative for prolonged bleeding, bruising easily, and swollen nodes. ENDOCRINE: Negative for cold or heat intolerance, polyuria, polydipsia and goiter. NEURO: negative Physical Exam: Constitutional: Pt is a well developed 51 year old female who is alert, oriented and cooperative Eyes: Following during examination. No redness or drainage. Respiratory: RR normal and nonlabored. Even breathing. No evidence of distress or shortness of breath. Psychology: Patient is engaged during conversation. Normal affect and mood. Does not appear depressed or anxious during encounter. Vascular: Dorsalis pedis and posterior tibial pulses palpable as b/l Capillary Fill time < 5 seconds to digits 1-5 b/l Skin temperature warm to warm proximal to distal b/l Hair growth present to digits Neurological: intact light touch/epicritic sensation - tinel b/l intact protective sensation no significant neurological deficits Dermatological: Right hallux lateral nail border is ingrowing with pain. Webspaces clean and dry 1-4 b/l. Skin appears well hydrated and supple. good color, texture, turgor. No open lesions present. No callosities present. Musculoskeletal/Orth opaedic: Patient has pain to palpation of right plantar medial calcaneal tubercle Foot type is neutral structurally AJ ROM is full with knee extended and flexed 1st MPJ is full when loaded and no pain or crepitus are noted with ROM. MTJ, STJ are full and free of pain and crepitus. +5/5 muscle strength dorsiflexion, plantarflexion, inversion, eversion b/l Radiographs: n/a ASSESSMENT: (more content not included)... Normal [facility] PREGUon 08-08-2019 HCG ( test) Ql (U) Negative Normal [facility] ([place]) Comment on above: Performed By: #### P REGU #### [address] [place], [place] [address] test (u) int HCG not detected. [facility] ([place] Comment on above: Performed By: #### P REGU #### [address] [place], [place] [address] XR KNEE 1 OR 2 VIEWS RIGHTon 08-08-2019 XR KNEE 1 OR 2 VIEWS RIGHT ORIGINAL XR XR KNEE portable AP and crosstable lateral 2 VIEWS RIGHT, CLINICAL STATEMENT: Status Post Arthroplasty , check prosthesis alignment COMPARISON: CT 07/21/2019 FINDINGS: The medial knee femorotibial compartment has been replaced with a prosthesis that show satisfactory alignment. There are expected postoperative changes in the soft tissues. IMPRESSION: Expected postoperative appearance following medial hemiarthroplasty knee surgery. Interpreted By: Darwin Bautista MD Preliminary Report By: Darwin Bautista MD Electronically Signed By: Darwin Bautista MD Dictated Date: 08/08/2019 4:52:25 PM Prelim Date: 08/08/2019 4:52:25 PM Sign Date: 08/08/2019 4:53:14 PM Ordering Provider:Faizan Hendrix [facility] ([place] .Auto Diffon 07-21-2019 Ammonia (P) [Mass/Vol] 0.40 10 3/mcL Normal 0.15-1.00 [facility] [place] Comment on above: Performed By: #### JONA SOSA ANEU #### [address] [address] Basophils (Bld) [#/Vol] 0.10 10 3/mcL Normal 0.00-0.19 [facility] ([place] Comment on above: Performed By: #### C JONA ROUSE ANEU #### [address] [address] Basophils/100 WBC (Bld) 0.9 % Normal 0.0-2.5 [facility] ([place] Comment on above: Performed By: #### C JONA ROUSE ANEU #### [address] [address] Eosinophils (Bld) [#/Vol] 0.20 10 3/mcL Normal 0.00-0.40 [facility] ([place] Comment on above: Performed By: #### JONA SOSA, ANEU #### [address] [address] Eosinophils/100 WBC (Bld) 1.5 % Normal 0.0-7.0 [facility] ([place] Comment on above: Performed By: #### C JONA ROUSE ANEU #### [place] [address] [address] Lymphocytes (Bld) [#/Vol] 2.60 10 3/mcL Normal 0.77-3.85 [facility] ([place]) Comment on above: Performed By: #### JONA SOSA, ANEU #### [place] [address] [address] Lymphocytes/100 WBC (Bld) 24.6 % Normal 10.0-50.0 [facility] ([place]) Comment on above: Performed By: #### JONA SOSA ANEU #### [place] [address] [address] Monocytes/100 WBC (Bld) 4.3 % Normal 1.7-13.0 [facility] ([place] Comment on above: Performed By: #### JONA SOSA, ALEKSANDR #### Vicky [address] [address] Neutrophils/100 WBC (Bld) 68.7 % Normal 37.0-80.0 [facility] ([place]) Comment on above: Performed By: #### JONA SOSA, ANEU #### [address] [address] .GFRon 07-21-2019 GFR Non- 70 ml/min/1.73sqm Normal [facility] ([place]) Comment on above: Result Comment: GFR Population mean for , Non- Americans Ages 20-29 = 116 mL/min/1.73 sq.m. Ages 30-39 = 107 mL/min/1.73 sq.m. Ages 40-49 = 99 mL/min/1.73 sq.m. Ages 50-59 = 93 mL/min/1.73 sq.m. Ages 60-69 = 85 mL/min/1.73 sq.m. Ages 70+ = 75 mL/min/1.73 sq.m. Chronic Kidney Disease: Less than 60 mL/min/1.73 square meters End Stage Renal Disease: Less than 15 mL/min/1.73 square meters Performed By: #### B MP, GFR #### [address] [address] GFR 85 ml/min/1.73sqm Normal [facility] ([place]) Comment on above: Result Comment: GFR Population mean for , Non- Americans Ages 20-29 = 116 mL/min/1.73 sq.m. Ages 30-39 = 107 mL/min/1.73 sq.m. Ages 40-49 = 99 mL/min/1.73 sq.m. Ages 50-59 = 93 mL/min/1.73 sq.m. Ages 60-69 = 85 mL/min/1.73 sq.m. Ages 70+ = 75 mL/min/1.73 sq.m. Chronic Kidney Disease: Less than 60 mL/min/1.73 square meters End Stage Renal Disease: Less than 15 mL/min/1.73 square meters Performed By: #### B MP, GFR #### [address] [address] .NEUABSon 07-21-2019 Neutrophils (Bld) [#/Vol] 7.20 10 3/mcL High 2.85-6.16 [facility] ([place]) Comment on above: Performed By: #### C NASIM, JONA, ANEU #### Vicky [address] [address] BMPon 07-21-2019 Calcium [Mass/Vol] 9.7 mg/dL Normal 8.4-10.2 [facility] ([place]) Comment on above: Performed By: #### B MP, GFR #### [address] [address] Chloride [Moles/Vol] 103 mmol/L Normal 98-107 [facility] ([place]) Comment on above: Performed By: #### B MP, GFR #### [address] [address] CO2 [Moles/Vol] 25 mmol/L Normal 22-29 [facility] ([place]) Comment on above: Performed By: #### B MP, GFR #### [address] [address] Creatinine [Mass/Vol] 0.86 mg/dL Normal 0.55-1.02 [facility] ([place]) Comment on above: Performed By: #### B MP, GFR #### [address] [address] Electrolyte Balance 12.0 mEq/L Normal [facility] ([place]) Comment on above: Performed By: #### B MP, GFR #### [address] [address] Glucose [Mass/Vol] 89 mg/dL Normal 70-105 [facility] ([place]) Comment on above: Performed By: #### B MP, GFR #### [address] [address] Potassium [Moles/Vol] 4.3 mmol/L Normal 3.5-5.1 [facility] ([place] Comment on above: Performed By: #### B MP, GFR #### [address] [address] Sodium [Moles/Vol] 140 mmol/L Normal 136-145 [facility] ([place]) Comment on above: Performed By: #### B MP, GFR #### [address] [address] Urea nitrogen [Mass/Vol] 15 mg/dL Normal 7-18 [facility] ([place] Comment on above: Performed By: #### B MP, GFR #### [address] [address] Urea nitrogen/Creatinine [Mass ratio] 17 ratio Normal 7-27 [facility] ([place] Comment on above: Performed By: #### B MP, GFR #### [address] [address] CBCon 07-21-2019 Erythrocyte distribution width (RBC) [Ratio] 12.6 % Normal 11.5-14.5 [facility] ([place] Comment on above: Performed By: #### C BC, JONA, ANEU #### [address] [address] Hematocrit (Bld) [Volume fraction] 40.7 % Normal 37.0-47.0 [facility] ([place] Comment on above: Performed By: #### JONA SOSA, ALEKSANDR #### [address] [address] Hemoglobin (Bld) [Mass/Vol] 13.9 G/dL Normal 12.0-16.0 [facility] ([place] Comment on above: Performed By: #### JONA SOSA, ANEU #### [address] [address] MCH (RBC) [Entitic mass] 30.8 pg Normal 27.0-31.2 [facility] ([place] Comment on above: Performed By: #### JONA SOSA, ANEU #### [address] [address] MCHC (RBC) [Mass/Vol] 34.0 G/dL Normal 33.0-37.0 [facility] ([place] Comment on above: Performed By: #### JONA SOSA, ANEU #### [address] [address] MCV (RBC) [Entitic vol] 90.4 fL Normal 80.0-94.0 [facility] ([place] Comment on above: Performed By: #### JONA SOSA, ANEU #### [address] [address] Platelet mean volume (Bld) [Entitic vol] 7.9 fL Normal 7.4-10.4 [facility] ([place]) Comment on above: Performed By: #### JONA SOSA, ANEU #### [address] [address] Platelets (Bld) [#/Vol] 371 10 3/mcL Normal 130-400 [facility] ([place] Comment on above: Performed By: #### JONA SOSA, ANEU #### [address] [address] RBC (Bld) [#/Vol] 4.50 10 6/mcL Normal 4.20-5.40 [facility] ([place]) Comment on above: Performed By: #### C JONA ROUSE, ANEU #### [id number] [place], [place] [address] WBC (Bld) [#/Vol] 10.50 10 3/mcL Normal 4.60-10.80 [facility] ([place]) Comment on above: Performed By: #### C JONA ROUSE, ANEU #### [id number] [place], [place] [address] CT KNEE W/O CONTRAST RIGHTon 07-21-2019 CT KNEE W/O CONTRAST RIGHT ORIGINAL CT KNEE W/O CONTRAST RIGHT CLINICAL STATEMENT: M21.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 Survey images of the RIGHT hip demonstrate mild degenerative changes. Severe degenerative changes identified in the medial tibiofemoral compartment of the knee with [id number] arthropathy. Mild to moderate lateral tibiofemoral compartment and moderate patellofemoral compartment degenerative changes seen. There is a small moderate joint effusion. No aggressive osseous lesion is identified. Survey images of the RIGHT ankle are grossly unremarkable. IMPRESSION: 1. Prominent degenerative changes in the knee. 2. Joint effusion Interpreted By: Saurav Dillard MD Preliminary Report By: Saurav Dillard MD Electronically Signed By: Saurav Dillard MD Dictated Date: 07/21/2019 1:02:36 PM Prelim Date: 07/21/2019 1:02:36 PM Sign Date: 07/21/2019 1:03:46 PM Ordering Provider:Faizan Hendrix [facility] ([place]) Clinical Summary: HMSPatient IDon 06-12-2019 [facility] Work Phone: Office Visit: New - 1st visi t with practice, Rm: 8on 06-12-2019 NEGATED: Highlighted rowMRI (magnetic resonance imaging) history of the right knee on 11/29/2018 at [facility] Work Phone: NEGATED: Highlighted rowxray history of the Right knee on 10/20/[address] [facility] Work Phone: Vital Signs Date Time Vital Sign Value Performing Clinician Facility 01-08-2025 08:21-0400 Body height 172.[address] Burak Wang MD Work Phone: [facility] 01-08-2025 08:21-0400 Body mass index (BMI) [Ratio] 28.1 kg/m2 Dr. Burak Wang MD Work Phone: [facility] 01-08-2025 08:21-0400 Body weight 84.[address] Burak Wang MD Work Phone: [facility] 01-08-2025 08:21-0400 Diastolic blood pressure 76 mm[Hg] Dr. Burak Wang MD Work Phone: [facility] 01-08-2025 08:21-0400 Systolic blood pressure 114 mm[Hg] Dr. Burak Wang MD Work Phone: [facility] 03-28-2023 11:16-0400 Body height 172.[address] Burak Wang Work Phone: [facility] 03-28-2023 11:16-0400 Body mass index (BMI) [Ratio] 35.6 kg/m2 Dr. Burak Wang Work Phone: [facility] 03-28-2023 11:16-0400 Body temperature 97.8 [degF] Dr. Burak Wang Work Phone: [facility] 03-28-2023 11:16-0400 Body weight 106.[address] Burak Wang Work Phone: [facility] 03-28-2023 11:16-0400 Diastolic blood pressure 80 mm[Hg] Dr. Burak Wnag Work Phone: [facility] 03-28-2023 11:16-0400 Heart rate 84 /min Dr. Burak Wang Work Phone: [facility] 03-28-2023 11:16-0400 Respiratory rate 12 /min Dr. Burak Wang Work Phone: [facility] 03-28-2023 11:16-0400 SaO2% (BldA) [Mass fraction] 97 % Dr. Burak Wang Work Phone: [facility] 03-28-2023 11:16-0400 Systolic blood pressure 134 mm[Hg] Dr. Burak Wang Work Phone: [facility] 12-29-2022 08:27-0400 Body height 172.[address] Burak Wang Work Phone: [facility] 12-29-2022 08:20-0400 Body mass index (BMI) [Ratio] 33.7 kg/m2 Dr. Burak Wang Work Phone: [facility] 12-29-2022 08:20-0400 Body weight 100.[address] Burak Wang Work Phone: [facility] 12-29-2022 08:20-0400 Diastolic blood pressure 78 mm[Hg] Dr. Burak Wang Work Phone: [facility] 12-29-2022 08:20-0400 Systolic blood pressure 124 mm[Hg] Dr. Burak Wang Work Phone: [facility] 12-04-2021 09:44-0400 Body height 172.[address] Burak Wang Work Phone: [facility] Work Phone: 12-04-2021 09:44-0400 Body mass index (BMI) [Ratio] 35.4 kg/m2 Dr. Burak Wang Work Phone: [facility] Work Phone: 12-04-2021 09:44-0400 Body weight 105.[address] Burak Wang Work Phone: [facility] Work Phone: 12-04-2021 09:44-0400 Diastolic blood pressure 78 mm[Hg] Dr. Burak Wang Work Phone: [facility] Work Phone: 12-04-2021 09:44-0400 Systolic blood pressure 126 mm[Hg] Dr. Burak Wang Work Phone: [facility] Work Phone: NEGATED: Highlighted [id number] 09:25-0500 BMI (Body Mass Index) 35.1 kg/m2 Eva Doss LPN [facility] Work Phone: NEGATED: Highlighted [id number] 09:25-0500 Body weight 104.33 kg Eva Jackmanjerica CASTAÑEDAN [facility] Work Phone: NEGATED: Highlighted [id number] 09:25-0500 Body weight 105 kg Eva Jackmanallum [employer] [facility] Work Phone: NEGATED: Highlighted [id number] 09:25-0500 BP Diastolic 86 mm[Hg] Eva Jackmanallum ENGRAVER [employer] [facility] Work Phone: NEGATED: Highlighted [id number] 09:25-0500 BP Systolic 137 mm[Hg] Eva Jackmanjerica BELLE [facility] Work Phone: NEGATED: Highlighted [id number] 09:25-0500 Heart rate 2+ Evafrench JackmanSelam ENGRAVER [employer] [facility] Work Phone: NEGATED: Highlighted [id number] 09:25-0500 Height 172.72 cm Eva Jackmanallum ENGRAVER [employer] [facility] Work Phone: NEGATED: Highlighted [id number] 09:25-0500 Height 173 cm Eva Selam BELLE [facility] Work Phone: NEGATED: Highlighted [id number] 09:25-0500 Pulse (Heart Rate) 82 /min Eva Selam BELLE [facility] Work Phone: Encounters Encounter Date Encounter Type Care Provider Facility Start: 01-09-2025 ambulatory Kesha Gtz [employer] Facil ity:[facility] Start: 01-08-2025 End: 01-08-2025 Patient encounter procedure Kesha Tresa [employer]-C -[facility] Work Phone: Start: 01-08-2025 End: 01-08-2025 Patient encounter status Kesha [place] [employer]-C [facility] Start: 01-08-2025 End: 01-08-[address] Burak Wang MD Work Phone: -[facility] Start: 02-25-2024 End: 02-25-2024 ambulatory Galindo Gonzalez Facility:[facility] Start: 01-10-2024 End: 01-10-2024 ambulatory Kesha Gtz NP Facility:[facility] Start: 07-15-2023 End: 07-15-[address] Burak Wang Work Phone: [facility] Work Phone: Start: 07-15-2023 End: 07-15-[address] Burak Wang Work Phone: [facility]-Physical Therapy Work Phone: Start: 03-28-2023 End: 03-28-[address] Burak Wang Work Phone: [facility] Work Phone: Start: 01-05-2023 End: 01-05-[address] Burak Wang Work Phone: [facility] Work Phone: Start: 01-05-2023 End: 01-05-[address] Burak Wang Work Phone: [facility]-Outpatient Breast Imaging Work Phone: Start: 12-29-2022 End: 12-29-[address] Burak Wang Work Phone: [facility] Work Phone: Start: 12-29-2022 End: 12-29-[address] Burak Wang Work Phone: [facility] Work Phone: Start: 11-13-2022 End: 11-13-2022 ambulatory [facility] Work Phone: Start: 11-13-2022 End: 11-13-2022 Patient encounter procedure [facility]Pulmonary Services/Neurology Start: 09-07-2022 End: 09-07-2022 ambulatory [facility] Work Phone: Start: 09-07-2022 End: 09-07-2022 Patient encounter procedure [facility] Start: 01-02-2022 End: 01-02-[address] Burak Wang Work Phone: [facility]Outpatient Breast Imaging Start: 12-04-2021 End: 12-04-[address] Burak Wang Work Phone: [facility] Start: 06-12-2019 End: 06-12-2019 Patient encounter procedure Miguel Harvey MD Work Phone: [facility] Work Phone: Procedures Date Procedure Procedure Detail Performing Clinician Start: 01-05-2023 Screening mammography Willie Wang Work Phone: Start: 01-02-2022 Screening mammography Willie Wang Work Phone: Start: 06-12-2019 End: 06-12-2019 Blood pressure within normal parameters - no follow-up required Miguel Harvey MD Work Phone: Start: 06-12-2019 End: 06-12-2019 BMI documented as above normal parameters - follow-up documented Miguel Harvey MD Work Phone: Start: 06-12-2019 End: 06-12-2019 Documentation of current medications Miguel Harvey MD Work Phone: Start: 06-12-2019 End: 06-12-2019 Osteoarthritis symptoms and functional status not assessed Miguel Harvey MD Work Phone: Start: 06-12-2019 End: 06-12-2019 Pain assessment documented as positive - follow-up documented Miguel Harvey MD Work Phone: Start: 06-12-2019 End: 06-12-2019 Radiologic exam knee complete 4/more views Miguel Harvey MD Work Phone: Start: 06-12-2019 End: 06-12-2019 Radiologic examination knee 1/2 views Miguel Harvey MD Work Phone: Start: 06-12-2019 End: 06-12-2019 Tobacco non-user Miguel Harvey MD Work Phone: NEGATED: Highlighted rowStart: 06-12-2019 End: 06-12-2019 Documentation of current medications Eva Doss LPN Plan of Treatment Date Care Activity Detail Author Start: 01-09-2025 MG Breast - bilatera l Screening [facility] Start: 12-29-2022 Patient referral [facility] Work Phone: Start: 12-04-2021 Patient referral [facility] Work Phone: Start: 06-12-2019 End: 06-12-2019 Appointment Appointment [facility] Work Phone: Patient referral [facility] Work Phone: Immunizations Immunization Date Immunization Notes Care Provider Jazzmine montes 03-18-[address] Burak Wang Work Phone: [facility] Payers Date Payer Category Payer Unknown [id number] 2023 Self-pay [id number] 2023 Unknown [id number] Private Health Insurance [id number] Unknown [facility] [id number] Unknown [facility] PACKAGE PLAN [id number] Unknown [id number] Unknown [id number] Unknown [id number] Unknown [id number] Unknown [id number] Social History Date Type Detail Facility Start: 12-04-2021 End: 03-28-2023 Assertion Unknown if ever smoked [facility] Work Phone: Start: 06-16-2017 None [facility] Start: 01-03-2019 Non-smoker [facility] Start: 1970 Sex Assigned At Female [facility] Start: 02-25-2024 Tobacco smoking stat us NHIS Never smoked tobacco (finding) [facility] Clinical Notes 03-26-2021 to 02-25-2024 Note Date & Type Note Facility 02-25-2024 Note [facility] Medical Records Department [address] [place] [address] History Physical Exam 02/25/24 0906 MR#: [id number] Acct: [id number] Name: SEBASTIAN CONCEPCION Rep #: [id number] : 1970 54 From: Galindo Gonzalez MD PCP: Dr. Burak Wang MD Status:[facility] Location: [place] [address] HPI - General HPI Narrative SEBASTIAN CONCEPCION, is a 54 F who presents for screening colonoscopy. Patient has never had a colonoscopy in the past. She denies any abdominal pain or blood in the stool. She has no family history of colon cancer. [facility] Medical History Wears glasses Cancer Osteoarthritis Gastric reflux Heartburn Non-smoker Abnormal Pap smear of cervix History of melanoma Home Medications ???Medication ???Instructions ???Recorded ???Last Taken ???Type multivitamin 1 tab PO DAILY 12/04/21 Unknown History calcium carbonate (Calcium 600) 600 mg PO DAILY 12/29/22 Unknown History meloxicam 15 mg tablet 15 mg PO DAILY 12/29/22 Unknown History estradiol 0.05 mg-norethindrone 1 patch transdermal 2XW #24 ea 01/04/24 Unknown Rx 0.14 mg/24 hr semiwkly transderm patch (CombiPatch) semaglutide (weight loss) 1.7 1.7 mg subcut TU 01/04/24 02/15/24 History mg/0.75 mL subcutaneous pen injector (Wegovy) amoxicillin 500 mg capsule 500 mg PO TID PRN SURGERY POST 02/23/24 02/25/24 History KNEE REPLACEMENT Allergy/AdvReac Type Severity Reaction Status Date / Time hydrocodone (From Vicodin) AdvReac Nausea/Vom/ Verified 02/25/24 08:45 Diarrhea Surgical History History of meniscectomy of left knee H/O meniscectomy of right knee S/P cholecystectomy History of partial knee replacement basal cell removed excision of malignancy melanoma H/O foot surgery [place] teeth extracted Social History household members: spouse current occupational status: employed Smoking Status: Never smoker alcohol intake: current details: social substance use type: does not use caffeine: No what type of physical activity do you participate in: walking frequency: 3-4 times per week seatbelt use: always do you feel safe at home: Yes additional social history: [employer]- 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 Patient works at [employer] Past Medical/Surgical History Planned Operation Planned Operative Procedure(s): CSCOPE S.O.S: No Previous Hospitalizations/Surgeries HX Hospitalizations: No HX of Surgeries: Skin cancer-Jan 2002 surgery Left foot surgery Any Problems With Anesthesia: No You/Your Family Experience Fever (Hyperthermia) With Anes: No Cholinesterase deficiency: No Cardiovascular Hx Chest Pain within Last 2 months: No Hx of Irregular Heartbeat and/or Afib: No Hx Heart Attack: No Hx Congestive Heart Failure: No Hx Rheumatic Fever: No Hx Hypertension: No Hx Internal Defibrillator: No Hx Pacemaker: No Hx Cardiac Catheterization: No Hx Cardiac Surgery/Stents/Etc.: No Hx Stress Test: No Hx Pain in Legs when Walking/Leg Cramps: No Respiratory Chronic Cough: No HX of Shortness of Breath: No Hoarseness: No Hx Chronic Obstructive Pulmonary Disease (COPD): No Hx Asthma: No Hx Emphysema: No Hx Sleep Apnea: No Hx Respiratory Tract Infection/Cold (presently): No Do You Snore Loudly (louder than talking or can be heard): No Do You Often Feel Tired/ Fatigued/ Sleepy Dring Daytime?: No Has Anyone Observed You Stop Breathing During Sleep?: No Result (for STOP score): Negative Hx Smoking: No Smoking Status: Never smoker Gastrointestinal Controlled With Meds: No Hx Gastrointestinal Disorders: No Hx Gastrointestinal Bleed: No Hx Ulcer: No Hx Hiatal Hernia: No Difficulty Chewing/Swallowing: No Special diet followed at home: No Hx Unplanned Weight Loss of 20#: No HX Unplanned Weight Gain of 20#: No Neurological Hx Seizures: No HX Syncope/Blackout Spells/Unconsciousness: No Hx Transient Ischemic Attacks (TIA): No Hx Multiple Sclerosis: No Hx Parkinson's Disease: No Hx Head/Neck Injury: No Hx Headaches: No Hx Back Injury/Pain: No Recent Onset of Speech Difficulty: No Restless Legs: No Does patient have nerve stimulator: No Blood Disorder Hx Leukemia: No Bleeding Tendencies: No Hx Deep Vein Thrombosis: No Hx High Cholesterol: No Blood Transmitted Disease: No Hx Hepatitis: No Hx Cirrhosis: No Hx Anemia: No Hx Blood Disorders: No Reproduction : No Is Patient Lactating: No Hx Hysterectomy: No Hx Tubal Ligation: No Are You Post Menopause: No Genitourinary Hx Renal Disease: No Hx Dialysis: No Musculoskeletal Hx Arthritis: Yes Hx Rheumatoid Arthritis: No Hx Gout: No Recent Onset of an Orthopedic Problem: Yes (right knee) Endocrine Hx Diabetes: No I (more content not included)... [facility] 07-15-2023 Discharge summary Note Date/Time July 15, 2023 6:19pm [facility] Physical Therapy [facility] [address] [place] [address] / REHABILITATION SERVICES DISCHARGE SUMMARY MR#: [id number] Acct: [id number] Name: SEBASTIAN CONCEPCION Rep #: [id number] : 1970 53 From: Cert. TAY PeresT, OCS Referring Dr.: JU Everett Status: REG R[facility] Insurance: [employer] SELF PAY INSURANCE Discharge Summary D/C summary: It has been my pleasure to treat SEBASTIAN CONCEPCION referred by Cas Everett PA-C, with the diagnosis of UNILATERAL POST-TRUAMATIC OSTEOARTHRITIS ,LEFT KNEE for a total of 14 visit(s). Discharge Date: 07/15/23 Please see the following information for a summary of their discharge status. Subjective Subjective: Sore from last session Less edema pain is better Mind full on side step Stairs are better Pain Left Knee: Pain Intensity (Out of 10): 2 Overall Improvement % Improvement: 70 Objective Objective/Function: POSTURE: mild forward posture at trunk hips/knees flexed NEURO: denies paresthesia/tingling PALAPTION: medial lateral tender EDEMA: joint line 42. cm AROM: supine knee flexion 0-140 degrees MMT: ( peak force) left quads 62.2 ,hamstrings 57.8. 1hip flexion 53.3 FLEXABLITY: hamstrings min/mod tight STAIRS: ascend/descend 5 steps Goals Goal 1:: Patient to be I with Aquatic Therapy program for knee OA Goal Progress: Goal Met Goal 2:: Patient to improve AROM supine knee flexion by 5 degrees to improve stairs Goal Progress: Goal Met Goal 3:: Patient to improve peak force quads/hams 5 # strength to improve function Goal Progress: Goal Met Goal 4:: Patient to improve LFES score by 5 points to improve function and QOL Goal Progress: Goal Met Plan Plan: D/C TO AQUATICS ON OWN D/C Information Discharge Comments: HEP d/c sentence: If there are questions or concerns regarding this patient's physical therapy, please feel free to call me at [phone]. Thank you for the referral of thispatient. Sincerely, Shon Smith PT, Cert MDT, OCS Balance/Gait/Functional tests Balance/Special Test Scores Lower Extremity Functional Score: 55 Improvement % Improvement: 70 <Electronically signed by Octaviano Kurtz PT. T, OCS> 07/16/23 07 CC: JU Everett; Dr. Burak Wang MD ~ JLA Signed [facility] Work Phone: 1(256) 235-358010-13-2021 NoteHNO ID: [id number] Author: Bev Scanlon Service: ? Author Type: Physician Type: Progress Notes Filed: 03/26/2021 12:31 PM Note Text: Initial Podiatric Office Visit: Chief Complaint: This 51 year old female who presents with chief complaint:right heel pain HPI Patient presents to clinic for evaluation of right heel. She complains of pain in the right heel the first thing in the morning after rest or if she has been sitting for long period and then gets up to walk. Patient states that as she starts walking, the pain will lessen slightly but never fully resolve. Patient states the pain is currently 10/10. Past treatment has included: 1. Ibuprofen which does not really help 2. otc inserts but due to the hardness actually makes the pain worse. 3. Stretching 4. Icing. PAIN EVALUATION 03/26/2021 1106 Pain Level: 10 Pain Location: Heel-Right Description: Sharp Duration Amount of Time: ? patient states a few months Duration Units: Months Frequency: Intermittent Intervention/Comfort measure: Reposition;Relaxation No results found for: HBA1C PCP: Burak Ortiz MD PAST MEDICAL HISTORY Diagnosis Date - abnormal pap negative cervical biopsy 2006 Current Outpatient Medications Medication Sig - Desogestrel-Ethinyl Estradiol (DESOGEN) 0.15-0.03 mg per tablet Take 1 tablet po daily continuous cycling up to 12 weeks No current facility-administered medications for this visit. ALLERGIES Allergen Reactions - Vicodin [Hydrocodon* Vomiting PAST SURGICAL HISTORY Procedure Laterality Date - PAST SURGICAL HISTORY OF 07/1998 WISDOM TEETH REMOVED - PAST SURGICAL HISTORY OF 1977 FOOT SURGERY - PAST SURGICAL HISTORY OF 2001 excision of malig. melanoma r shoulder - PAST SURGICAL HISTORY OF 10/2011 basil cell removed on chest FAMILY HISTORY Problem Relation Age of Onset - Arthritis Mother - Osteoporosis Maternal Grandmother Social History Tobacco Use - Smoking status: Never Smoker - Smokeless tobacco: Never Used Substance Use Topics - Alcohol use: Yes Comment: occasional - Drug use: No REVIEW OF SYSTEMS GENERAL: Negative for Malaise, significant weight loss, fever RESPIRATORY: Negative for cough, wheezing and shortness of breath CARDIOVASCULAR: Negative for chest pain, leg swelling and palpitations GI: Negative for abdominal discomfort, blood in stools or black stools and change in bowel habits : Negative for dysuria, frequency and incontinence MUSCULOSKELETAL: Negative for joint pain or swelling, back pain, and muscle pain. SKIN: Negative for lesions, rash, and itching. HEMATOLOGY/LYMPHOLOGY Negative for prolonged bleeding, bruising easily, and swollen nodes. ENDOCRINE: Negative for cold or heat intolerance, polyuria, polydipsia and goiter. NEURO: negative Physical Exam: Constitutional: Pt is a well developed 51 year old female who is alert, oriented and cooperative Eyes: Following during examination. No redness or drainage. Respiratory: RR normal and nonlabored. Even breathing. No evidence of distress or shortness of breath. Psychology: Patient is engaged during conversation. Normal affect and mood. Does not appear depressed or anxious during encounter. Vascular: Dorsalis pedis and posterior tibial pulses palpable as b/l Capillary Fill time < 5 seconds to digits 1-5 b/l Skin temperature warm to warm proximal to distal b/l Hair growth present to digits Neurological: intact light touch/epicritic sensation - tinel b/l intact protective sensation no significant neurological deficits Dermatological: Right hallux lateral nail border is ingrowing with pain. Webspaces clean and dry 1-4 b/l. Skin appears well hydrated and supple. good color, texture, turgor. No open lesions present. No callosities present. Musculoskeletal/Orthopaedic: Patient has pain to palpation of right plantar medial calcaneal tubercle Foot type is neutral structurally AJ ROM is full with knee extended and flexed 1st MPJ is full when loaded and no pain or crepitus are noted with ROM. MTJ, STJ are full and free of pain and crepitus. +5/5 muscle strength dorsiflexion, plantarflexion, inversion, eversion b/l Radiographs: n/a ASSESSMENT: (M72.2) Plantar fasciitis (primary encounter diagnosis) (L60.0) Ingrowing toenail of right foot (M79.671) Right foot pain (R09.89) Diminished pulses in lower extremity PLAN: 1. Initial Office Visit - A thorough review of the patient's PMH and Podiatric physical exam was completed. 2. Patient advised to perform stretching excercises, icing, and to make appropriate shoe gear changes to include wearing athletic-type shoes with supportive insoles. No barefoot walking. Patient also given written instructions on how to correctly perform the stretching of the achilles tendon/calf stretches, and the heel spur/plantar fasciitis regimen. 3. Patient advised to seek wide, deep toe box, accomodative, comfo (more content not included)...[facility]10-13-2021 NoteHNO ID: [id number] Author: Carrie Chavez RN Service: ? Author Type: ? Type: Progress Notes Filed: 03/26/2021 12:31 PM Note Text: AMB ROOMING INTAKE FLOWSHEET DATA Risk Screening Do you have concerns about personal safety or safety in the home?: No Pain Pain Level: 10 Pain Location: Heel-Right Description: Sharp Duration Amount of Time: (patient states a few months) Duration Units: Months Frequency: Intermittent Intervention/Comfort measure: Reposition, Relaxation Patient presents with: Right Foot - Established Patient, Pain Patient c/o R heel pain for a few months. No injury.[facility] Evaluation note* Diagnosis Onset Date Resolution Status Encounter for routine gynecological examination noneactive [facility] Work Phone: Evaluation noteNo assessment information available [facility] Work Phone: Evaluation note* Diagnosis Onset Date Resolution Status Climacteric acute Fatigue acute Encounter for routine gynecological examination noneactive [facility] Work Phone: Evaluation note* Diagnosis Onset Date Resolution Status Poison jaziel dermatitis acute [facility] Work Phone: Evaluation note* Diagnosis Onset Date Resolution Status Admit Date Encounter for routine gynecological examination noneactive December 132024 8:20am [facility] Work Phone[facility] Discharge instructionsAmbulatory Orders* General Surgery Location: None Selected [facility] Work Phone: Reason for referral (narrative)No reason for referral information [facility] Work Phone: Summary Purpose Family History No Family History Records Found Relationship Condition Age at Onset Recorded Date/T bayron Unknown Family History?- Unknown June 11:51pm Family History?- Unknown June 11:51pm Relationship Condition Age at Onset Recorded Date/T bayron Unknown Family History?- Unknown June 11:51pm Family History?- Unknown November 18, 023 3:52pm Relationship Condition Age at Onset Recorded Date/T bayron Unknown Family History?- Unknown June 10:51pm Family History?- Unknown November 18, 2 023 2:52pm Relationship Condition Age at Onset Recorded Date/T bayron Unknown Family History?- Unknown November 18, 023 3:52pm Family History?- Unknown February 122023 9:06am Advance Directives No Advanced Directives Records Found Advance Directive Response Recorded Date/ Time Living Will No January 30 9 9:15am Power of Concrete Sculptor No January 30 019 9:15am Advance Directive Response Recorded Date/ Time Living Will No November 18, 2022 3 :52pm Power of Concrete Sculptor No November 18, 2022 3:52pm Advance Directive Response Recorded Date/ Time Living Will No November 18, 2022 2 :52pm Power of Concrete Sculptor No November 18, 2022 2:52pm Chief Complaint Chief Complaint Description Start Date right knee pain Preliminary chief co mplaint data, not yet signed by the author as of Instructions Instruction Description Start Date CompletedPatient advised to follow-up with Primary Care Physician for BMI management. Assessments There may be information available, but it has not been provided by the sender. Review of System There may be information available, but it has not been provided by the sender. History of Present Illness There may be information available, but it has not been provided by the sender. 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 Reason for Visit Climacteric Fatigue Encounter for routine gynecological examination Chief Complaint CONCERN FOR POISON I VY LT KNEE, RX HERE Reason for Visit Poison jaziel dermatiti s Chief Complaint Admit Date 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) January 08, 2025 8:20 am Reason for Visit Admit Date Encounter for routine gynecological exam ination January 08, 2025 8:20am Additional Source Comments INFORMATION SOURCE (unrecogn ized section and content) DATE CREATED AUTHOR 08/09/2019 [facility] ([place]) DATE CREATED AUTHOR AUTHOR'S ORGANIZ ATION 07/13/2021 [facility] DATE CREATED AUTHOR AUTHOR'S ORGANIZ ATION 01/08/2025 [facility] Reason for Visit (unrecogniz ed section and content) Reason For Visit Description New - 1st visit with practice Preliminary reason f or visit data, not yet signed by the author as of right knee pain Goals (unrecognized section and content) Goals may be documented in a n alternate sectionGoals may be documented in an alternate sectionGoals may be documented in an alternate sectionGoals may be documented in an alternate sectionGoals may be documented in an alternate sectionGoals may be documented in an alternate sectionGoals may be documented in an alternate section Care Teams (unrecognized sec tion and content) Team Status: Active Member Role Status Dates Dr. Burak Ortiz MD Family Provider Active Dr. Burak Wang MD Primary Care Provider Active Team Status: Inactive Member Role Status Dates Dr. Burak Wang MD Primary Care Provider Active GIRISH Miller Attending Provider Active Team Status: Inactive Member Role Status Dates Dr. Burak Wang MD Primary Care Provider Active BALJINDER Reyes Attending Provider, Referring Provide r Active Team Status: Inactive Member Role Status Dates Dr. Burak Wang MD Primary Care Provider, Referr ing Provider Active Kesha Gtz NP, NP-C Attending Provider Active Team Status: Inactive Member Role Status Dates Dr. Burak Wang MD Primary Care Provider Active Kesha Gtz NP, NP-C Attending Provider, Referring Provider Active Team Status: Inactive Member Role Status Dates Dr. Burak Wang MD Primary Care Provider, Referr ing Provider Active Dorinda GALE PA Attending Provider Active Team Status: Inactive Member Role Status Dates Dr. Burak Wang MD Primary Care Provider Active BALJINDER Valdovinos-C Attending Provider Active Team Status: Active Member Role/Relationship Status Dates Dr. Burak Wang MD Primary Care Provider Active Team Status: Inactive Member Role/Relationship Status Dates Dr. Burak Wang MD Primary Care Provider Active Start: January 08, 2025 End: January 08, 2025 Dr. Burak Wang MD Referring Provider Active Start: January 08, 2025 End: January 08, 2025 Kesha Gtz NP, NP-Annamaria Attending Provider Active Start: January 08, 2025 End: January 08, 2025 FOR RECORDS PERTAINING TO PATIENTS WHO ARE OR HAVE BEEN ENROLLED IN A CHEMICAL DEPENDENCY/SUBSTANCEABUSE PROGRAM, SOME INFORMATION MAY BE OMITTED. This clinical summary was aggregated from multiple sources. Caution should be exercised in using it in the provision of clinical care. This summary normalizes information from multiple sources, and as a consequence, information in this document may materially change the coding, format and clinical context of patient data. In addition, data may be omitted in some cases. CLINICAL DECISIONS SHOULD BE BASED ON THE PRIMARY CLINICAL RECORDS. [employer] [facility]. provides no warranty or guarantee of the accuracy or completeness of information in this document.
--- NOTE | 2025-01-09 07:15 | BI_ITS ---
EXAM: SCRN MAMM (CAD)W/CHELITA BILAT DATE: 01/09/2025 CLINICAL HISTORY: F, Age 55 y/o , SCREENING FOR BREAST CANCER No family history. TECHNIQUE: SCRN MAMM (CAD)W/CHELITA BILAT COMPARISON: Prior exam(s) dated January 10, 2024.. FINDINGS: TISSUE DENSITY: The breasts are heterogeneously dense, which may obscure small masses. Bilateral Breast Mammographic Findings: No significant masses, calcifications or other abnormalities are identified. Stable small bilateral axillary lymph nodes. No suspicious masses, areas of developing architectural distortion, or suspicious calcifications. There has been no significant interval change. BI/SCRN MAMM (CAD)W/CHELITA BILAT IMPRESSION: Stable examination. OVERALL FINAL ASSESSMENT BI-RADS 2: BENIGN RECOMMENDATION: Routine annual follow-up in 1 Year A letter with findings and recommendations will be mailed to the patient. Reading Location: [id number]
== END | disposition home or self-care (01) ==
LOC: OPBI 07:08
PROVIDERS: PCP Family Medicine; Referring Provider Nurse Practitioner Women's Health; Visit Provider Nurse Practitioner Women's Health
DX: Z12.31 Encounter for screening mammogram for malignant neoplasm of breast (principal)
CPT/HCPCS: 77063; 77067